=== PATIENT | male | born 1945 | race Two or more races ===

== ENCOUNTER 2023-01-08 16:42 | Inpatient (IN) | payer OTHER ==
[2023-01-08] MEDS: ALBUTEROL SO4 2.5/IPRATROPIUM 0.5 INH SOL 3 ML VIAL.NEB. NEB SCH ×3 (18:00→18:20)
[2023-01-08 18:15] LABS: VENOUS BASE EXCESS 0.9 mmol/L (-2-2); VENOUS O2 SATURATION 53.9 % (70-80); VENOUS PH 7.218 (7.310-7.410)
[2023-01-08] MEDS ORDERED: ERTAPENEM SODIUM 1 GM in SODIUM CHLORIDE 50 ML IVPB ONE (18:22)
[2023-01-08] MEDS ORDERED: VANCOMYCIN 1,000 MG in DEXTROSE 5%-WATER - 250 ML IVPB ONE (18:22)
[2023-01-08 18:23] LABS: BASO % 0.4 % (0-2.0); HEMOGLOBIN 10.4 GM/dL (11.7-16.9); MCH 30.1 pg (25.7-33.7); MCHC 31.7 g/dl (32.0-35.9); MEAN PLT VOLUME 6.7 fl (7.5-11.1); MONO % 3.9 % (3.8-10.2); NEUT % 91.7 % (42.8-82.8); PLATELET COUNT 335 10^3/uL (134-434); RBC 3.47 M/mm3 (4.00-5.60); RDW 16.3 % (11.9-15.9); WHITE BLOOD COUNT 24.4 K/mm3 (4.0-10.0)
[2023-01-08 18:26] LABS: VENOUS PCO2 76.5 mmHg (38-52)
[2023-01-08] MEDS ORDERED: VANCOMYCIN 1 GRAM (PRE-DOCKED) 1,000 MG/250 ML BAG IVPB ONE (18:28)
[2023-01-08 18:31] LABS: INR 1.12 (0.83-1.09)
[2023-01-08 18:34] LABS: ACTIVATED PTT 30.1 SECONDS (25.2-36.5)
[2023-01-08 18:46] LABS: POTASSIUM 5.4 mmol/L (3.5-5.1)
[2023-01-08 18:48] LABS: BLOOD UREA NITROGEN 53.9 mg/dL (7-18); CALCIUM 8.6 mg/dL (8.5-10.1)
[2023-01-08 18:49] LABS: ALBUMIN 2.1 g/dl (3.4-5.0)
[2023-01-08 18:51] LABS: CREATININE 0.9 mg/dL (0.55-1.3)
[2023-01-08 18:53] LABS: BILIRUBIN,TOTAL 0.5 mg/dL (0.2-1); TOT PROT 7.3 g/dl (6.4-8.2)
[2023-01-08 19:02] LABS: EPI CELLS 1 /uL (0-25.1); HYALINE CASTS 1 /uL (0-3.1); URINE APPEARANCE CLOUDY; URINE BACTERIA >9,000 /uL (0-1359); URINE BILIRUBIN NEGATIVE (NEGATIVE); URINE COLOR YELLOW; URINE GLUCOSE (UA) NEGATIVE (NEGATIVE); URINE KETONE NEGATIVE (NEGATIVE); URINE LEUK ESTERASE 3+ (NEGATIVE); URINE NITRITE NEGATIVE (NEGATIVE); URINE PROTEIN 1+ (NEGATIVE); URINE RBC 64 /uL (0-23.9); URINE WBC 679 /uL (0-25.8)
[2023-01-08] MEDS ORDERED: MEROPENEM 1 GM in DEXTROSE 5%-WATER 100 ML IVPB ONE (19:16)
[2023-01-08] MEDS ORDERED: MEROPENEM 1 GM VIAL (RESTRICTED TO ID) IVPB ONE (19:32)
[2023-01-09] MEDS ORDERED: SODIUM CHLORIDE 1,000 ML IV SCH (03:15)
[2023-01-09] MEDS ORDERED: DEXTROSE 50%-WATER - 25 GM/50 ML VIAL IVPUSH ONE ×2 (03:30→03:36)
[2023-01-09] MEDS ORDERED: DEXTROSE 50%-WATER 25 GM/50 ML DISP.SYRIN ONE ×3 (03:30→13:10)
[2023-01-09] MEDS ORDERED: MEROPENEM 1 GM VIAL (RESTRICTED TO ID) IVPB ONE ×2 (04:17→09:28)
[2023-01-09] MEDS: DEXTROSE 5%-NORMAL SALINE 1,000 ML IV SCH ×2 (04:32→14:37)
[2023-01-09] MEDS: MEROPENEM 1 GM in DEXTROSE 5%-WATER 100 ML IVPB SCH ×2 (04:32→10:09)
[2023-01-09] MEDS ORDERED: HEPARIN NA (PORCINE) 5,000 UNITS/ML 1ML VIAL ONE (06:13)
[2023-01-09] MEDS: HEPARIN NA (PORCINE) 5,000 UNITS/ML 1ML VIAL SQ SCH ×3 (06:21→21:10)
[2023-01-09] MEDS ORDERED: VANCOMYCIN 1 GRAM (PRE-DOCKED) 1,000 MG/250 ML BAG IVPB SCH (07:00)
[2023-01-09] MEDS ORDERED: INSULIN SLIDING SCALE (NOVOLOG) 1 VIAL SQ SCH (07:00)
[2023-01-09] MEDS ORDERED: DEXTROSE 50%-WATER - 25 GM/50 ML VIAL IVPUSH PRN (07:54)
[2023-01-09] MEDS ORDERED: VANCOMYCIN 1 GRAM (PRE-DOCKED) 1,000 MG/250 ML BAG IVPB ONE (08:19)
[2023-01-09 08:38] LABS: BASO % 0.2 % (0-2.0); HEMATOCRIT 26.5 % (35.4-49); HEMOGLOBIN 8.7 GM/dL (11.7-16.9); LYMPH % 5.8 % (8-40); MCH 31.5 pg (25.7-33.7); MEAN CELL VOLUME 95.4 fl (80-96); MEAN PLT VOLUME 6.8 fl (7.5-11.1); MONO % 4.4 % (3.8-10.2); NEUT % 89.6 % (42.8-82.8); PLATELET COUNT 293 10^3/uL (134-434); RBC 2.77 M/mm3 (4.00-5.60); RDW 15.6 % (11.9-15.9); RETICULOCYTES 1.58 % (0.5-1.5); WHITE BLOOD COUNT 13.5 K/mm3 (4.0-10.0)
[2023-01-09 08:55] LABS: POTASSIUM 5.3 mmol/L (3.5-5.1)
[2023-01-09 09:01] LABS: BLOOD UREA NITROGEN 54.7 mg/dL (7-18); CALCIUM 8.2 mg/dL (8.5-10.1)
[2023-01-09 09:02] LABS: ALBUMIN 1.8 g/dl (3.4-5.0); MAGNESIUM 2.7 mg/dL (1.8-2.4)
[2023-01-09 09:05] LABS: CREATININE 0.8 mg/dL (0.55-1.3); PHOSPHOROUS 4.6 mg/dL (2.5-4.9)
[2023-01-09 09:06] LABS: BILIRUBIN,TOTAL 0.5 mg/dL (0.2-1)
[2023-01-09 09:07] LABS: TOT PROT 6.2 g/dl (6.4-8.2)
[2023-01-09] MEDS ORDERED: DEXTROSE 50%-WATER 25 GM/50 ML DISP.SYRIN IVPUSH PRN (10:49)
[2023-01-09] MEDS: PIPERACILLIN/TAZOB 4.5 GM 4.5 GM in DEXTROSE 5%-WATER 100 ML IVPB SCH (17:10)
[2023-01-09] MEDS: VANCOMYCIN/WATER FOR INJ (PEG) 1,000 MG/200 ML BAG IVPB SCH (21:09)
[2023-01-09] MEDS ORDERED: SODIUM ZIRCONIUM CYCLOSILICATE (LOKELMA) 5 GM PACKET PO SCH (22:00)
[2023-01-10] MEDS: PIPERACILLIN/TAZOB 4.5 GM 4.5 GM in DEXTROSE 5%-WATER 100 ML IVPB SCH ×3 (01:15→17:06)
[2023-01-10] MEDS ORDERED: MEROPENEM 1 GM in DEXTROSE 5%-WATER 100 ML IVPB SCH (02:00)
[2023-01-10] MEDS: DEXTROSE 5%-NORMAL SALINE 1,000 ML IV SCH ×2 (04:00→17:09)
[2023-01-10] MEDS: HEPARIN NA (PORCINE) 5,000 UNITS/ML 1ML VIAL SQ SCH ×3 (06:11→21:28)
[2023-01-10 07:09] LABS: HEMATOCRIT 31.9 % (35.4-49); HEMOGLOBIN 10.5 GM/dL (11.7-16.9); PLATELET COUNT 303 10^3/uL (134-434); RBC 3.39 M/mm3 (4.00-5.60); RDW 16.2 % (11.9-15.9)
[2023-01-10 07:27] LABS: POTASSIUM 4.5 mmol/L (3.5-5.1)
[2023-01-10 07:33] LABS: BLOOD UREA NITROGEN 44.1 mg/dL (7-18)
[2023-01-10 07:34] LABS: ALBUMIN 1.8 g/dl (3.4-5.0)
[2023-01-10 07:37] LABS: CREATININE 0.7 mg/dL (0.55-1.3)
[2023-01-10 07:38] LABS: BILIRUBIN,TOTAL 0.7 mg/dL (0.2-1); TOT PROT 6.2 g/dl (6.4-8.2)
[2023-01-10] MEDS: VANCOMYCIN/WATER FOR INJ (PEG) 1,000 MG/200 ML BAG IVPB SCH ×2 (08:16→21:26)
[2023-01-10 08:40] LABS: ANISOCYTOSIS 1+; MACROCYTOSIS 0
[2023-01-10] MEDS ORDERED: LOSARTAN POTASSIUM 50 MG TABLET GT SCH (13:45)
[2023-01-10] MEDS ORDERED: LORazepam 2 MG/ML SDV VIAL IVPUSH STA (13:50)
[2023-01-10] MEDS ORDERED: dilTIAZem HCL 125 MG/25 ML - 25 ML VIAL ONE (13:57)
[2023-01-10] MEDS ORDERED: LORazepam 2 MG/ML SDV VIAL IVPUSH ONE (13:58)
[2023-01-10] MEDS ORDERED: levETIRAcetam 500 MG/5 ML INJECTION VIAL IVPB ONE (13:58)
[2023-01-10] MEDS ORDERED: dilTIAZem HCL 50 MG/10 ML - 10 ML VIAL IVPUSH ONE (13:59)
[2023-01-10] MEDS: levETIRAcetam 500 MG/5 ML ORAL SOLUTION (UNIT-DOSE CUPS) GT SCH ×2 (14:14→21:30)
[2023-01-10] MEDS: Lacosamide 50 MG/5 ML ORAL SOLUTION UNIT CUPS GT SCH ×2 (14:15→21:31)
[2023-01-10] MEDS: DIGOXIN 0.125 MG TABLET GT SCH (14:15)
[2023-01-10] MEDS: amLODIPine BESYLATE 10 MG TABLET (FP) GT SCH (14:15)
[2023-01-10] MEDS: OXcarbazepine 300 MG/5 ML UNIT DOSE CUPS GT SCH ×2 (15:49→21:30)
[2023-01-10] MEDS ORDERED: METOPROLOL TARTRATE 5 MG/5 ML VIAL IVPUSH PRN (16:24)
[2023-01-10 16:29] LABS: POTASSIUM 4.6 mmol/L (3.5-5.1)
[2023-01-10 16:31] LABS: BLOOD UREA NITROGEN 36.9 mg/dL (7-18); CALCIUM 8.4 mg/dL (8.5-10.1); MAGNESIUM 2.6 mg/dL (1.8-2.4)
[2023-01-10 16:33] LABS: CREATININE 0.7 mg/dL (0.55-1.3); PHOSPHOROUS 2.8 mg/dL (2.5-4.9)
[2023-01-10] MEDS: METOPROLOL TARTRATE 5 MG/5 ML VIAL IVPUSH ONE ×2 (16:45→17:16)
[2023-01-10] MEDS ORDERED: SODIUM CHLORIDE 1,000 ML IV STA (17:16)
[2023-01-10 19:00] LABS: N-TERMINAL BNP 3104.2 pg/ml (5-450)
[2023-01-10] MEDS: DOXAZOSIN MESYLATE 4 MG TABLET GT SCH (21:30)
[2023-01-10] MEDS ORDERED: FAMOTIDINE 40 MG/5 ML ORAL SUSPENSION GT SCH (22:00)
[2023-01-11] MEDS: PIPERACILLIN/TAZOB 4.5 GM 4.5 GM in DEXTROSE 5%-WATER 100 ML IVPB SCH ×3 (01:03→17:24)
[2023-01-11] MEDS: DEXTROSE 5%-NORMAL SALINE 1,000 ML IV SCH (02:00)
[2023-01-11] MEDS ORDERED: LACTATED RINGERS SOLUTION 1,000 ML/1,000 ML INFUS.BAG IV STA ×2 (05:42→11:01)
[2023-01-11] MEDS: OXcarbazepine 300 MG/5 ML UNIT DOSE CUPS GT SCH ×3 (06:03→22:07)
[2023-01-11] MEDS: HEPARIN NA (PORCINE) 5,000 UNITS/ML 1ML VIAL SQ SCH ×3 (06:03→22:04)
[2023-01-11] MEDS: LEVOTHYROXINE NA 100 MCG TABLET (FP) GT SCH (06:03)
[2023-01-11 06:55] LABS: BASO % 0.4 % (0-2.0); EOS % 0.1 % (0-4.5); HEMATOCRIT 23.6 % (35.4-49); HEMOGLOBIN 7.4 GM/dL (11.7-16.9); LYMPH % 6.9 % (8-40); MCH 30.6 pg (25.7-33.7); MCHC 31.6 g/dl (32.0-35.9); MEAN PLT VOLUME 6.8 fl (7.5-11.1); MONO % 6.3 % (3.8-10.2); NEUT % 86.3 % (42.8-82.8); PLATELET COUNT 282 10^3/uL (134-434); RBC 2.43 M/mm3 (4.00-5.60); RDW 16.1 % (11.9-15.9); WHITE BLOOD COUNT 11.6 K/mm3 (4.0-10.0)
[2023-01-11 07:19] LABS: POTASSIUM 3.9 mmol/L (3.5-5.1)
[2023-01-11 07:26] LABS: BLOOD UREA NITROGEN 35.5 mg/dL (7-18)
[2023-01-11 07:28] LABS: CREATININE 0.7 mg/dL (0.55-1.3); PHOSPHOROUS 1.9 mg/dL (2.5-4.9)
[2023-01-11 07:55] LABS: ALBUMIN 1.3 g/dl (3.4-5.0); CALCIUM 7.1 mg/dL (8.5-10.1); TOT PROT 4.9 g/dl (6.4-8.2)
[2023-01-11] MEDS: VANCOMYCIN/WATER FOR INJ (PEG) 1,000 MG/200 ML BAG IVPB SCH ×2 (08:34→22:03)
[2023-01-11] MEDS: AMINO ACIDS/PROTEIN HYDROLYS 30 ML LIQUID.PKT GT SCH (08:34)
[2023-01-11] MEDS: levETIRAcetam 500 MG/5 ML ORAL SOLUTION (UNIT-DOSE CUPS) GT SCH ×2 (09:01→22:06)
[2023-01-11] MEDS: DIGOXIN 0.125 MG TABLET GT SCH (09:02)
[2023-01-11] MEDS: FAMOTIDINE 20 MG/2.5 ML ORAL LIQUID GT SCH ×2 (09:02→22:06)
[2023-01-11] MEDS: ASCORBIC ACID 500 MG/5 ML UNIT DOSE CUP GT SCH (09:03)
[2023-01-11] MEDS: Lacosamide 50 MG/5 ML ORAL SOLUTION UNIT CUPS GT SCH ×2 (09:26→22:07)
[2023-01-11] MEDS: LOSARTAN POTASSIUM 50 MG TABLET GT SCH (09:26)
[2023-01-11] MEDS ORDERED: NOREPINEPHRINE BITARTRATE 16,000 MCG in SODIUM CHLORIDE 484 ML IV SCH (14:00)
[2023-01-11] MEDS: NOREPINEPHRINE 0.9 % NACL 8 MG/250 ML BAG IVPB SCH (14:21)
[2023-01-11] MEDS ORDERED: PROPOFOL 1,000,000 MCG/100 ML VIAL ONE (14:28)
[2023-01-11] MEDS: MUPIROCIN 2% TOPICAL OINTMENT FOR DECOLONIZATION NS SCH ×2 (15:53→22:23)
[2023-01-11 21:21] LABS: HEMATOCRIT 30.6 % (35.4-49); HEMOGLOBIN 10.2 GM/dL (11.7-16.9); MCH 31.1 pg (25.7-33.7); MCHC 33.2 g/dl (32.0-35.9); MEAN CELL VOLUME 93.7 fl (80-96); MEAN PLT VOLUME 6.2 fl (7.5-11.1); PLATELET COUNT 340 10^3/uL (134-434); RBC 3.26 M/mm3 (4.00-5.60); RDW 15.6 % (11.9-15.9)
[2023-01-11] MEDS: DOXAZOSIN MESYLATE 4 MG TABLET GT SCH (22:04)
[2023-01-11] MEDS: CHLORHEXIDINE GLUCONATE 4% CLEANSER FOR DECOLONIZATION TP SCH (22:05)
[2023-01-11 22:12] LABS: ANISOCYTOSIS 1+; MACROCYTOSIS 1+
[2023-01-12] MEDS: PIPERACILLIN/TAZOB 4.5 GM 4.5 GM in DEXTROSE 5%-WATER 100 ML IVPB SCH ×3 (01:23→18:15)
[2023-01-12] MEDS: DEXTROSE 5%-NORMAL SALINE 1,000 ML IV SCH (06:17)
[2023-01-12] MEDS: HEPARIN NA (PORCINE) 5,000 UNITS/ML 1ML VIAL SQ SCH ×3 (06:17→22:02)
[2023-01-12] MEDS: OXcarbazepine 300 MG/5 ML UNIT DOSE CUPS GT SCH ×3 (06:21→22:04)
[2023-01-12] MEDS: LEVOTHYROXINE NA 100 MCG TABLET (FP) GT SCH (06:21)
[2023-01-12 09:52] LABS: HEMATOCRIT 27.1 % (35.4-49); HEMOGLOBIN 9.1 GM/dL (11.7-16.9); MCH 31.7 pg (25.7-33.7); MCHC 33.7 g/dl (32.0-35.9); MEAN PLT VOLUME 6.2 fl (7.5-11.1); PLATELET COUNT 267 10^3/uL (134-434); RBC 2.88 M/mm3 (4.00-5.60); WHITE BLOOD COUNT 9.1 K/mm3 (4.0-10.0)
[2023-01-12] MEDS: VANCOMYCIN/WATER FOR INJ (PEG) 1,000 MG/200 ML BAG IVPB SCH ×2 (10:03→10:06)
[2023-01-12] MEDS: ASCORBIC ACID 500 MG/5 ML UNIT DOSE CUP GT SCH (10:04)
[2023-01-12] MEDS: AMINO ACIDS/PROTEIN HYDROLYS 30 ML LIQUID.PKT GT SCH (10:04)
[2023-01-12] MEDS: FAMOTIDINE 20 MG/2.5 ML ORAL LIQUID GT SCH ×2 (10:04→22:04)
[2023-01-12] MEDS: Lacosamide 50 MG/5 ML ORAL SOLUTION UNIT CUPS GT SCH ×2 (10:04→22:07)
[2023-01-12] MEDS: DIGOXIN 0.125 MG TABLET GT SCH (10:05)
[2023-01-12 10:09] LABS: POTASSIUM 3.2 mmol/L (3.5-5.1)
[2023-01-12 10:11] LABS: CALCIUM 7.3 mg/dL (8.5-10.1)
[2023-01-12 10:12] LABS: ALBUMIN 1.3 g/dl (3.4-5.0); BLOOD UREA NITROGEN 29.2 mg/dL (7-18); MAGNESIUM 2.1 mg/dL (1.8-2.4)
[2023-01-12] MEDS: levETIRAcetam 500 MG/5 ML ORAL SOLUTION (UNIT-DOSE CUPS) GT SCH ×2 (10:12→22:03)
[2023-01-12] MEDS: MUPIROCIN 2% TOPICAL OINTMENT FOR DECOLONIZATION NS SCH ×2 (10:12→21:15)
[2023-01-12 10:15] LABS: CREATININE 0.7 mg/dL (0.55-1.3)
[2023-01-12 10:16] LABS: BILIRUBIN,TOTAL 0.6 mg/dL (0.2-1)
[2023-01-12 11:00] LABS: ANISOCYTOSIS 0; MACROCYTOSIS 0
[2023-01-12] MEDS: amLODIPine BESYLATE 10 MG TABLET (FP) GT SCH (13:42)
[2023-01-12] MEDS: LOSARTAN POTASSIUM 50 MG TABLET GT SCH (13:42)
[2023-01-12] MEDS ORDERED: POTASSIUM CHLORIDE ORAL LIQUID 20 MEQ/15 ML PO ONE (14:59)
[2023-01-12 16:13] VITALS: BMI 22.4
[2023-01-12] MEDS: NOREPINEPHRINE 0.9 % NACL 8 MG/250 ML BAG IVPB SCH (22:00)
[2023-01-12] MEDS: CHLORHEXIDINE GLUCONATE 4% CLEANSER FOR DECOLONIZATION TP SCH (22:02)
[2023-01-12] MEDS: DOXAZOSIN MESYLATE 4 MG TABLET GT SCH (22:02)
[2023-01-13] MEDS: PIPERACILLIN/TAZOB 4.5 GM 4.5 GM in DEXTROSE 5%-WATER 100 ML IVPB SCH ×3 (02:58→18:01)
[2023-01-13] MEDS: HEPARIN NA (PORCINE) 5,000 UNITS/ML 1ML VIAL SQ SCH ×3 (06:01→22:45)
[2023-01-13] MEDS: OXcarbazepine 300 MG/5 ML UNIT DOSE CUPS GT SCH ×3 (06:04→22:46)
[2023-01-13] MEDS: LEVOTHYROXINE NA 100 MCG TABLET (FP) GT SCH (06:05)
[2023-01-13 08:01] LABS: POTASSIUM 3.8 mmol/L (3.5-5.1)
[2023-01-13 08:08] LABS: CALCIUM 7.6 mg/dL (8.5-10.1)
[2023-01-13 08:09] LABS: ALBUMIN 1.4 g/dl (3.4-5.0); BLOOD UREA NITROGEN 22.2 mg/dL (7-18); MAGNESIUM 2.2 mg/dL (1.8-2.4)
[2023-01-13 08:12] LABS: CREATININE 0.6 mg/dL (0.55-1.3); PHOSPHOROUS 1.6 mg/dL (2.5-4.9)
[2023-01-13 08:13] LABS: BILIRUBIN,TOTAL 0.6 mg/dL (0.2-1)
[2023-01-13 08:14] LABS: TOT PROT 5.6 g/dl (6.4-8.2)
[2023-01-13 08:17] LABS: HEMATOCRIT 30.4 % (35.4-49); MCH 31.4 pg (25.7-33.7); MCHC 32.9 g/dl (32.0-35.9); MEAN CELL VOLUME 95.5 fl (80-96); MEAN PLT VOLUME 6.6 fl (7.5-11.1); PLATELET COUNT 304 10^3/uL (134-434); RBC 3.18 M/mm3 (4.00-5.60); RDW 15.7 % (11.9-15.9)
[2023-01-13 08:52] LABS: ANISOCYTOSIS 1+; MACROCYTOSIS 0
[2023-01-13] MEDS: AMINO ACIDS/PROTEIN HYDROLYS 30 ML LIQUID.PKT GT SCH (09:29)
[2023-01-13] MEDS: levETIRAcetam 500 MG/5 ML ORAL SOLUTION (UNIT-DOSE CUPS) GT SCH ×2 (09:29→22:44)
[2023-01-13] MEDS: FAMOTIDINE 20 MG/2.5 ML ORAL LIQUID GT SCH ×2 (09:30→22:43)
[2023-01-13] MEDS: DIGOXIN 0.125 MG TABLET GT SCH (09:30)
[2023-01-13] MEDS: MUPIROCIN 2% TOPICAL OINTMENT FOR DECOLONIZATION NS SCH (09:30)
[2023-01-13] MEDS: LOSARTAN POTASSIUM 50 MG TABLET GT SCH (09:30)
[2023-01-13] MEDS: Lacosamide 50 MG/5 ML ORAL SOLUTION UNIT CUPS GT SCH ×2 (09:30→22:49)
[2023-01-13] MEDS: ASCORBIC ACID 500 MG/5 ML UNIT DOSE CUP GT SCH (09:31)
[2023-01-13] MEDS: amLODIPine BESYLATE 10 MG TABLET (FP) GT SCH (09:31)
[2023-01-13] MEDS ORDERED: NOREPINEPHRINE 0.9 % NACL 8 MG/250 ML BAG IVPB SCH (13:27)
[2023-01-13] MEDS ORDERED: DEXTROSE 50%-WATER 25 GM/50 ML DISP.SYRIN IVPUSH PRN (13:27)
[2023-01-13] MEDS: methylPREDNISolone NA SUCC 40 MG/1 ML VIAL IVPUSH SCH (14:13)
[2023-01-13] MEDS: NAPH,MB-DB/K PH,MBDB POWDER PACKET PO SCH ×2 (14:14→22:43)
[2023-01-13] MEDS ORDERED: MUPIROCIN 2% TOPICAL OINTMENT FOR DECOLONIZATION NS SCH (22:00)
[2023-01-13] MEDS ORDERED: CHLORHEXIDINE GLUCONATE 4% CLEANSER FOR DECOLONIZATION TP SCH (22:00)
[2023-01-13] MEDS: DOXAZOSIN MESYLATE 4 MG TABLET GT SCH (22:59)
[2023-01-14] MEDS: PIPERACILLIN/TAZOB 4.5 GM 4.5 GM in DEXTROSE 5%-WATER 100 ML IVPB SCH ×3 (02:35→17:53)
[2023-01-14] MEDS: NAPH,MB-DB/K PH,MBDB POWDER PACKET PO SCH (05:52)
[2023-01-14] MEDS: HEPARIN NA (PORCINE) 5,000 UNITS/ML 1ML VIAL SQ SCH ×3 (05:52→22:56)
[2023-01-14] MEDS: OXcarbazepine 300 MG/5 ML UNIT DOSE CUPS GT SCH ×3 (05:52→22:56)
[2023-01-14] MEDS: LEVOTHYROXINE NA 100 MCG TABLET (FP) GT SCH (06:00)
[2023-01-14] MEDS: amLODIPine BESYLATE 10 MG TABLET (FP) GT SCH (11:57)
[2023-01-14] MEDS: DIGOXIN 0.125 MG TABLET GT SCH (11:57)
[2023-01-14] MEDS: AMINO ACIDS/PROTEIN HYDROLYS 30 ML LIQUID.PKT GT SCH (11:57)
[2023-01-14] MEDS: ASCORBIC ACID 500 MG/5 ML UNIT DOSE CUP GT SCH (11:58)
[2023-01-14] MEDS: LOSARTAN POTASSIUM 50 MG TABLET GT SCH (11:58)
[2023-01-14] MEDS: Lacosamide 50 MG/5 ML ORAL SOLUTION UNIT CUPS GT SCH ×2 (11:59→22:52)
[2023-01-14] MEDS: levETIRAcetam 500 MG/5 ML ORAL SOLUTION (UNIT-DOSE CUPS) GT SCH ×2 (11:59→22:52)
[2023-01-14] MEDS: FAMOTIDINE 20 MG/2.5 ML ORAL LIQUID GT SCH ×2 (12:02→22:57)
[2023-01-14] MEDS: methylPREDNISolone NA SUCC 40 MG/1 ML VIAL IVPUSH SCH (12:03)
[2023-01-14] MEDS: DOXAZOSIN MESYLATE 4 MG TABLET GT SCH (22:58)
[2023-01-15] MEDS: PIPERACILLIN/TAZOB 4.5 GM 4.5 GM in DEXTROSE 5%-WATER 100 ML IVPB SCH ×3 (01:28→17:23)
[2023-01-15] MEDS: LEVOTHYROXINE NA 100 MCG TABLET (FP) GT SCH (07:04)
[2023-01-15] MEDS: OXcarbazepine 300 MG/5 ML UNIT DOSE CUPS GT SCH ×3 (07:04→22:17)
[2023-01-15] MEDS: HEPARIN NA (PORCINE) 5,000 UNITS/ML 1ML VIAL SQ SCH ×3 (07:04→22:19)
[2023-01-15 09:03] LABS: HEMATOCRIT 25.1 % (35.4-49); HEMOGLOBIN 8.4 GM/dL (11.7-16.9); MCH 31.3 pg (25.7-33.7); MCHC 33.4 g/dl (32.0-35.9); MEAN CELL VOLUME 93.6 fl (80-96); MEAN PLT VOLUME 6.4 fl (7.5-11.1); PLATELET COUNT 233 10^3/uL (134-434); RBC 2.69 M/mm3 (4.00-5.60); RDW 15.9 % (11.9-15.9); WHITE BLOOD COUNT 7.9 K/mm3 (4.0-10.0)
[2023-01-15 09:09] LABS: POTASSIUM 4.4 mmol/L (3.5-5.1)
[2023-01-15 09:13] LABS: ALBUMIN 1.3 g/dl (3.4-5.0); CALCIUM 7.5 mg/dL (8.5-10.1); MAGNESIUM 2.1 mg/dL (1.8-2.4)
[2023-01-15 09:14] LABS: BLOOD UREA NITROGEN 28.1 mg/dL (7-18)
[2023-01-15 09:16] LABS: CREATININE 0.6 mg/dL (0.55-1.3); PHOSPHOROUS 1.9 mg/dL (2.5-4.9)
[2023-01-15 09:18] LABS: BILIRUBIN,TOTAL 0.6 mg/dL (0.2-1); TOT PROT 5.1 g/dl (6.4-8.2)
[2023-01-15 09:35] LABS: ANISOCYTOSIS 1+; MACROCYTOSIS 0
[2023-01-15] MEDS ORDERED: NAPH,MB-DB/K PH,MBDB POWDER PACKET PO ONE (10:45)
[2023-01-15] MEDS: methylPREDNISolone NA SUCC 40 MG/1 ML VIAL IVPUSH SCH (11:54)
[2023-01-15] MEDS: ASCORBIC ACID 500 MG/5 ML UNIT DOSE CUP GT SCH (11:54)
[2023-01-15] MEDS: DIGOXIN 0.125 MG TABLET GT SCH (11:55)
[2023-01-15] MEDS: amLODIPine BESYLATE 10 MG TABLET (FP) GT SCH (11:55)
[2023-01-15] MEDS: levETIRAcetam 500 MG/5 ML ORAL SOLUTION (UNIT-DOSE CUPS) GT SCH ×2 (11:56→22:15)
[2023-01-15] MEDS: LOSARTAN POTASSIUM 50 MG TABLET GT SCH (11:56)
[2023-01-15] MEDS: AMINO ACIDS/PROTEIN HYDROLYS 30 ML LIQUID.PKT GT SCH (11:56)
[2023-01-15] MEDS: Lacosamide 50 MG/5 ML ORAL SOLUTION UNIT CUPS GT SCH ×2 (11:58→22:16)
[2023-01-15] MEDS: FAMOTIDINE 20 MG/2.5 ML ORAL LIQUID GT SCH ×2 (12:23→22:17)
[2023-01-15] MEDS: DOXAZOSIN MESYLATE 4 MG TABLET GT SCH (22:18)
[2023-01-16] MEDS: PIPERACILLIN/TAZOB 4.5 GM 4.5 GM in DEXTROSE 5%-WATER 100 ML IVPB SCH ×3 (02:58→17:29)
[2023-01-16] MEDS: HEPARIN NA (PORCINE) 5,000 UNITS/ML 1ML VIAL SQ SCH ×3 (06:03→22:18)
[2023-01-16] MEDS: LEVOTHYROXINE NA 100 MCG TABLET (FP) GT SCH (08:15)
[2023-01-16] MEDS: AMINO ACIDS/PROTEIN HYDROLYS 30 ML LIQUID.PKT GT SCH (08:15)
[2023-01-16 09:10] LABS: HEMATOCRIT 31.2 % (35.4-49); HEMOGLOBIN 10.3 GM/dL (11.7-16.9); MCH 31.5 pg (25.7-33.7); MEAN CELL VOLUME 95.4 fl (80-96); MEAN PLT VOLUME 6.7 fl (7.5-11.1); PLATELET COUNT 283 10^3/uL (134-434); RBC 3.27 M/mm3 (4.00-5.60); RDW 16.1 % (11.9-15.9); WHITE BLOOD COUNT 12.3 K/mm3 (4.0-10.0)
[2023-01-16 09:30] LABS: POTASSIUM 4.9 mmol/L (3.5-5.1)
[2023-01-16 09:33] LABS: MAGNESIUM 2.2 mg/dL (1.8-2.4)
[2023-01-16 09:34] LABS: BLOOD UREA NITROGEN 30.3 mg/dL (7-18)
[2023-01-16 09:36] LABS: CREATININE 0.6 mg/dL (0.55-1.3); PHOSPHOROUS 2.4 mg/dL (2.5-4.9)
[2023-01-16 09:38] LABS: BILIRUBIN,TOTAL 0.4 mg/dL (0.2-1); TOT PROT 6.4 g/dl (6.4-8.2)
[2023-01-16 09:39] LABS: ALBUMIN 1.7 g/dl (3.4-5.0)
[2023-01-16] MEDS: Lacosamide 50 MG/5 ML ORAL SOLUTION UNIT CUPS GT SCH ×2 (10:09→22:17)
[2023-01-16] MEDS: levETIRAcetam 500 MG/5 ML ORAL SOLUTION (UNIT-DOSE CUPS) GT SCH ×2 (10:09→22:17)
[2023-01-16] MEDS: DIGOXIN 0.125 MG TABLET GT SCH (10:10)
[2023-01-16] MEDS: ASCORBIC ACID 500 MG/5 ML UNIT DOSE CUP GT SCH (10:10)
[2023-01-16] MEDS: methylPREDNISolone NA SUCC 40 MG/1 ML VIAL IVPUSH SCH (10:10)
[2023-01-16] MEDS: LOSARTAN POTASSIUM 50 MG TABLET GT SCH (10:10)
[2023-01-16] MEDS: FAMOTIDINE 20 MG/2.5 ML ORAL LIQUID GT SCH ×2 (10:10→22:38)
[2023-01-16] MEDS: amLODIPine BESYLATE 10 MG TABLET (FP) GT SCH (10:10)
[2023-01-16] MEDS: OXcarbazepine 300 MG/5 ML UNIT DOSE CUPS GT SCH ×3 (11:29→22:17)
[2023-01-16] MEDS: DOXAZOSIN MESYLATE 4 MG TABLET GT SCH (22:18)
[2023-01-17] MEDS: PIPERACILLIN/TAZOB 4.5 GM 4.5 GM in DEXTROSE 5%-WATER 100 ML IVPB SCH ×2 (01:42→10:20)
[2023-01-17] MEDS: HEPARIN NA (PORCINE) 5,000 UNITS/ML 1ML VIAL SQ SCH ×3 (06:03→21:01)
[2023-01-17] MEDS: OXcarbazepine 300 MG/5 ML UNIT DOSE CUPS GT SCH ×3 (06:03→21:01)
[2023-01-17] MEDS: LEVOTHYROXINE NA 100 MCG TABLET (FP) GT SCH (06:04)
[2023-01-17] MEDS: methylPREDNISolone NA SUCC 40 MG/1 ML VIAL IVPUSH SCH (10:21)
[2023-01-17] MEDS: DIGOXIN 0.125 MG TABLET GT SCH (10:21)
[2023-01-17] MEDS: LOSARTAN POTASSIUM 50 MG TABLET GT SCH (10:21)
[2023-01-17] MEDS: AMINO ACIDS/PROTEIN HYDROLYS 30 ML LIQUID.PKT GT SCH (10:21)
[2023-01-17] MEDS: amLODIPine BESYLATE 10 MG TABLET (FP) GT SCH (10:21)
[2023-01-17] MEDS: FAMOTIDINE 20 MG/2.5 ML ORAL LIQUID GT SCH ×2 (10:22→21:01)
[2023-01-17] MEDS: Lacosamide 50 MG/5 ML ORAL SOLUTION UNIT CUPS GT SCH ×2 (10:22→21:01)
[2023-01-17] MEDS: levETIRAcetam 500 MG/5 ML ORAL SOLUTION (UNIT-DOSE CUPS) GT SCH ×2 (10:22→21:01)
[2023-01-17] MEDS: ASCORBIC ACID 500 MG/5 ML UNIT DOSE CUP GT SCH (10:22)
[2023-01-17] MEDS: DOXAZOSIN MESYLATE 4 MG TABLET GT SCH (21:01)
[2023-01-18] MEDS: HEPARIN NA (PORCINE) 5,000 UNITS/ML 1ML VIAL SQ SCH ×3 (05:27→23:20)
[2023-01-18] MEDS: OXcarbazepine 300 MG/5 ML UNIT DOSE CUPS GT SCH ×3 (05:30→23:23)
[2023-01-18] MEDS: LEVOTHYROXINE NA 100 MCG TABLET (FP) GT SCH (06:02)
[2023-01-18] MEDS: AMINO ACIDS/PROTEIN HYDROLYS 30 ML LIQUID.PKT GT SCH (08:33)
[2023-01-18 09:11] LABS: HEMATOCRIT 29.3 % (35.4-49); HEMOGLOBIN 9.7 GM/dL (11.7-16.9); MCH 31.2 pg (25.7-33.7); MCHC 33.1 g/dl (32.0-35.9); MEAN CELL VOLUME 94.3 fl (80-96); MEAN PLT VOLUME 7.1 fl (7.5-11.1); PLATELET COUNT 271 10^3/uL (134-434); RBC 3.11 M/mm3 (4.00-5.60); RDW 15.9 % (11.9-15.9); WHITE BLOOD COUNT 11.3 K/mm3 (4.0-10.0)
[2023-01-18 09:30] LABS: POTASSIUM 5.2 mmol/L (3.5-5.1)
[2023-01-18 09:48] LABS: BILIRUBIN,TOTAL 0.4 mg/dL (0.2-1); CALCIUM 7.7 mg/dL (8.5-10.1); TOT PROT 5.5 g/dl (6.4-8.2)
[2023-01-18 09:51] LABS: ALBUMIN 1.6 g/dl (3.4-5.0); BLOOD UREA NITROGEN 31.8 mg/dL (7-18)
[2023-01-18 09:54] LABS: ANISOCYTOSIS 2+; MACROCYTOSIS 0; TARGET CELLS 1+
[2023-01-18 09:55] LABS: CREATININE 0.5 mg/dL (0.55-1.3)
[2023-01-18] MEDS: ASCORBIC ACID 500 MG/5 ML UNIT DOSE CUP GT SCH (10:05)
[2023-01-18] MEDS: Lacosamide 50 MG/5 ML ORAL SOLUTION UNIT CUPS GT SCH (10:05)
[2023-01-18] MEDS: methylPREDNISolone NA SUCC 40 MG/1 ML VIAL IVPUSH SCH (10:05)
[2023-01-18] MEDS: levETIRAcetam 500 MG/5 ML ORAL SOLUTION (UNIT-DOSE CUPS) GT SCH ×2 (10:05→23:22)
[2023-01-18] MEDS: amLODIPine BESYLATE 10 MG TABLET (FP) GT SCH (10:05)
[2023-01-18] MEDS: FAMOTIDINE 20 MG/2.5 ML ORAL LIQUID GT SCH ×2 (10:06→23:24)
[2023-01-18] MEDS: DIGOXIN 0.125 MG TABLET GT SCH (10:06)
[2023-01-18] MEDS: LOSARTAN POTASSIUM 50 MG TABLET GT SCH (10:06)
[2023-01-18] MEDS: SODIUM ZIRCONIUM CYCLOSILICATE (LOKELMA) 5 GM PACKET PO SCH (14:24)
[2023-01-18] MEDS: DOXAZOSIN MESYLATE 4 MG TABLET GT SCH (23:25)
[2023-01-19] MEDS: Lacosamide 50 MG/5 ML ORAL SOLUTION UNIT CUPS GT SCH ×3 (00:30→21:50)
[2023-01-19] MEDS: DOXAZOSIN MESYLATE 4 MG TABLET GT SCH ×2 (06:36→21:52)
[2023-01-19] MEDS: levETIRAcetam 500 MG/5 ML ORAL SOLUTION (UNIT-DOSE CUPS) GT SCH ×3 (06:39→21:50)
[2023-01-19] MEDS: FAMOTIDINE 20 MG/2.5 ML ORAL LIQUID GT SCH ×3 (06:40→21:51)
[2023-01-19] MEDS: OXcarbazepine 300 MG/5 ML UNIT DOSE CUPS GT SCH ×4 (06:41→21:51)
[2023-01-19] MEDS: HEPARIN NA (PORCINE) 5,000 UNITS/ML 1ML VIAL SQ SCH ×4 (06:43→21:49)
[2023-01-19] MEDS: LEVOTHYROXINE NA 100 MCG TABLET (FP) GT SCH (07:15)
[2023-01-19] MEDS: SODIUM ZIRCONIUM CYCLOSILICATE (LOKELMA) 5 GM PACKET PO SCH (09:45)
[2023-01-19] MEDS: AMINO ACIDS/PROTEIN HYDROLYS 30 ML LIQUID.PKT GT SCH (09:45)
[2023-01-19] MEDS: LOSARTAN POTASSIUM 25 MG TABLET GT SCH (09:46)
[2023-01-19] MEDS: DIGOXIN 0.125 MG TABLET GT SCH (09:48)
[2023-01-19] MEDS: amLODIPine BESYLATE 10 MG TABLET (FP) GT SCH (09:48)
[2023-01-19] MEDS: methylPREDNISolone NA SUCC 40 MG/1 ML VIAL IVPUSH SCH (09:49)
[2023-01-19] MEDS: ASCORBIC ACID 500 MG/5 ML UNIT DOSE CUP GT SCH (09:49)
[2023-01-19] MEDS ORDERED: methylPREDNISolone NA SUCC 40 MG/1 ML VIAL IVPUSH SCH (10:12)
[2023-01-20] MEDS: OXcarbazepine 300 MG/5 ML UNIT DOSE CUPS GT SCH ×3 (05:24→21:57)
[2023-01-20] MEDS: HEPARIN NA (PORCINE) 5,000 UNITS/ML 1ML VIAL SQ SCH ×3 (05:25→21:57)
[2023-01-20] MEDS: LEVOTHYROXINE NA 100 MCG TABLET (FP) GT SCH (06:03)
[2023-01-20] MEDS: AMINO ACIDS/PROTEIN HYDROLYS 30 ML LIQUID.PKT GT SCH (08:32)
[2023-01-20 09:58] LABS: HEMOGLOBIN 9.8 GM/dL (11.7-16.9); MCH 31.1 pg (25.7-33.7); MCHC 32.8 g/dl (32.0-35.9); MEAN CELL VOLUME 95.1 fl (80-96); MEAN PLT VOLUME 7.5 fl (7.5-11.1); PLATELET COUNT 302 10^3/uL (134-434); RBC 3.15 M/mm3 (4.00-5.60); RDW 17.1 % (11.9-15.9); WHITE BLOOD COUNT 11.6 K/mm3 (4.0-10.0)
[2023-01-20 10:06] LABS: POTASSIUM 4.7 mmol/L (3.5-5.1)
[2023-01-20] MEDS ORDERED: predniSONE 10 MG TABLET (UD) PO SCH (10:15)
[2023-01-20] MEDS ORDERED: predniSONE 10 MG TABLET (UD) GT SCH (10:15)
[2023-01-20 10:17] LABS: CREATININE 0.6 mg/dL (0.55-1.3)
[2023-01-20 10:18] LABS: ALBUMIN 1.7 g/dl (3.4-5.0); TOT PROT 5.6 g/dl (6.4-8.2)
[2023-01-20 10:19] LABS: BILIRUBIN,TOTAL 0.3 mg/dL (0.2-1)
[2023-01-20 10:20] LABS: CALCIUM 7.7 mg/dL (8.5-10.1)
[2023-01-20] MEDS: ASCORBIC ACID 500 MG/5 ML UNIT DOSE CUP GT SCH (10:57)
[2023-01-20] MEDS: DIGOXIN 0.125 MG TABLET GT SCH (10:57)
[2023-01-20] MEDS: amLODIPine BESYLATE 10 MG TABLET (FP) GT SCH (10:57)
[2023-01-20] MEDS: FAMOTIDINE 20 MG/2.5 ML ORAL LIQUID GT SCH ×2 (10:57→21:59)
[2023-01-20] MEDS: LOSARTAN POTASSIUM 25 MG TABLET GT SCH (10:57)
[2023-01-20 11:06] LABS: ANISOCYTOSIS 0; HELMET CELLS 0; HOWELL-JOLLY BODIES 0; MACROCYTOSIS 0; OVALOCYTE 0; ROULEAU 0; SICKELED CELLS 0; TARGET CELLS 0; TEAR DROP CELLS 0; TOXIC GRANULATION 0
[2023-01-20] MEDS: levETIRAcetam 500 MG/5 ML ORAL SOLUTION (UNIT-DOSE CUPS) GT SCH ×2 (11:28→21:58)
[2023-01-20] MEDS: Lacosamide 50 MG/5 ML ORAL SOLUTION UNIT CUPS GT SCH ×2 (11:28→21:58)
[2023-01-20] MEDS: DOXAZOSIN MESYLATE 4 MG TABLET GT SCH (22:54)
[2023-01-21] MEDS: HEPARIN NA (PORCINE) 5,000 UNITS/ML 1ML VIAL SQ SCH ×2 (05:50→13:52)
[2023-01-21] MEDS: OXcarbazepine 300 MG/5 ML UNIT DOSE CUPS GT SCH ×2 (05:50→13:53)
[2023-01-21] MEDS: LEVOTHYROXINE NA 100 MCG TABLET (FP) GT SCH (06:04)
[2023-01-21] MEDS: ASCORBIC ACID 500 MG/5 ML UNIT DOSE CUP GT SCH (10:43)
[2023-01-21] MEDS: Lacosamide 50 MG/5 ML ORAL SOLUTION UNIT CUPS GT SCH (10:43)
[2023-01-21] MEDS: amLODIPine BESYLATE 10 MG TABLET (FP) GT SCH (10:43)
[2023-01-21] MEDS: levETIRAcetam 500 MG/5 ML ORAL SOLUTION (UNIT-DOSE CUPS) GT SCH (10:43)
[2023-01-21] MEDS: LOSARTAN POTASSIUM 25 MG TABLET GT SCH (10:43)
[2023-01-21] MEDS: FAMOTIDINE 20 MG/2.5 ML ORAL LIQUID GT SCH (10:44)
[2023-01-21] MEDS: AMINO ACIDS/PROTEIN HYDROLYS 30 ML LIQUID.PKT GT SCH (10:44)
[2023-01-21] MEDS: DIGOXIN 0.125 MG TABLET GT SCH (10:46)
[2023-01-21 14:53] VITALS: BP 140/63; PULSE 81; TEMP 97.7
[2023-01-21 17:45] VITALS: RESP 17
== END 2023-01-21 17:48 | DRG 870 ==
LOC: JER 16:42 → JERBED 20:48 → J2W 01-09 14:11 → JICU 01-11 14:11 → J5S 01-13 12:56
PROVIDERS: ADMIT Internal Medicine; ATTEND Internal Medicine
PROC: 5A1955Z Respiratory Ventilation, Greater than 96 Consecutive Hours (ICD-10-PCS; principal; 2023-01-08)
PROC: 05HN33Z Insertion of Infusion Device into Left Internal Jugular Vein, Percutaneous Approach (ICD-10-PCS; 2023-01-11)
PROC: B544ZZA Ultrasonography of Left Jugular Veins, Guidance (ICD-10-PCS; 2023-01-11)
PROC: 30233N1 Transfusion of Nonautologous Red Blood Cells into Peripheral Vein, Percutaneous Approach (ICD-10-PCS; 2023-01-11)
DX: A41.9 Sepsis, unspecified organism (principal); G82.50 Quadriplegia, unspecified; J18.9 Pneumonia, unspecified organism; R65.21 Severe sepsis with septic shock; E43 Unspecified severe protein-calorie malnutrition; G93.1 Anoxic brain damage, not elsewhere classified; J96.10 Chronic respiratory failure, unspecified whether with hypoxia or hypercapnia; N39.0 Urinary tract infection, site not specified; E87.1 Hypo-osmolality and hyponatremia; Z99.11 Dependence on respirator [ventilator] status; Z93.0 Tracheostomy status; G40.909 Epilepsy, unspecified, not intractable, without status epilepticus; I48.91 Unspecified atrial fibrillation; E78.5 Hyperlipidemia, unspecified; I11.0 Hypertensive heart disease with heart failure; I50.9 Heart failure, unspecified; J45.909 Unspecified asthma, uncomplicated; E03.9 Hypothyroidism, unspecified; K21.9 Gastro-esophageal reflux disease without esophagitis; N40.0 Benign prostatic hyperplasia without lower urinary tract symptoms; E87.5 Hyperkalemia; D64.9 Anemia, unspecified; Z68.24 Body mass index [BMI] 24.0-24.9, adult; E11.649 Type 2 diabetes mellitus with hypoglycemia without coma
CPT/HCPCS: 0241U-QW; 36415; 36430; 70450-TC; 71045-TC-FY; 76700-TC; 80053; 80162; 80177; 80183; 81003; 82024; 82533; 82550; 82553; 82803; 82962; 83036; 83525; 83540; 83550; 83605; 83735; 83880; 84100; 84439; 84443; 84484; 85025; 85027; 85045; 85610; 85730; 86704; 86803; 86850; 86900; 86901; 86922; 87040; 87081; 87086; 87186; 87340; 87517; 87635; 93005; 93010; 93970-TC; 94002; 99285-25; G0480; J1644; P9058

== ENCOUNTER 2023-01-21 19:39 | Observation (INO) | payer OTHER ==
[2023-01-21 20:01] VITALS: BMI 28.1
[2023-01-21] MEDS ORDERED: HEPARIN NA (PORCINE) 5,000 UNITS/ML 1ML VIAL SQ SCH (22:00)
[2023-01-21] MEDS ORDERED: DOXAZOSIN MESYLATE 4 MG TABLET GT SCH (22:00)
[2023-01-21] MEDS: levETIRAcetam 500 MG/5 ML ORAL SOLUTION (UNIT-DOSE CUPS) GT SCH (23:11)
[2023-01-21] MEDS: Lacosamide 50 MG/5 ML ORAL SOLUTION UNIT CUPS GT SCH (23:12)
[2023-01-21] MEDS: OXcarbazepine 300 MG/5 ML UNIT DOSE CUPS GT SCH (23:13)
[2023-01-22] MEDS ORDERED: LEVOTHYROXINE NA 100 MCG TABLET (FP) GT SCH (07:00)
[2023-01-22] MEDS: INSULIN SLIDING SCALE (NOVOLOG) 1 VIAL SQ SCH ×4 (08:50→16:58)
[2023-01-22] MEDS: FAMOTIDINE 40 MG/5 ML ORAL SUSPENSION GT SCH ×2 (08:51→10:32)
[2023-01-22] MEDS ORDERED: ZINC AMINO ACID CHELATE GT SCH (10:00)
[2023-01-22] MEDS ORDERED: ASCORBIC ACID 500 MG/5 ML UNIT DOSE CUP GT SCH (10:00)
[2023-01-22] MEDS ORDERED: amLODIPine BESYLATE 10 MG TABLET (FP) GT SCH (10:00)
[2023-01-22] MEDS ORDERED: FERROUS SO4 300 MG/5 ML ORAL SOLN UNIT DOSE CUPS GT SCH (10:00)
[2023-01-22] MEDS ORDERED: DIGOXIN 0.125 MG TABLET GT SCH (10:00)
[2023-01-22] MEDS ORDERED: ACETAMINOPHEN 650 MG/20.3 ML ORAL SOLUTION (CUPS) GT SCH (10:00)
[2023-01-22] MEDS ORDERED: LOSARTAN POTASSIUM 50 MG TABLET GT SCH (10:00)
[2023-01-22] MEDS ORDERED: predniSONE 10 MG TABLET (UD) GT SCH ×2 (10:00)
[2023-01-22 10:09] LABS: HEMATOCRIT 28.2 % (35.4-49); HEMOGLOBIN 9.3 GM/dL (11.7-16.9); MCH 31.6 pg (25.7-33.7); MEAN CELL VOLUME 95.7 fl (80-96); MEAN PLT VOLUME 7.6 fl (7.5-11.1); PLATELET COUNT 310 10^3/uL (134-434); RBC 2.95 M/mm3 (4.00-5.60); RDW 17.3 % (11.9-15.9); WHITE BLOOD COUNT 9.8 K/mm3 (4.0-10.0)
[2023-01-22] MEDS: levETIRAcetam 500 MG/5 ML ORAL SOLUTION (UNIT-DOSE CUPS) GT SCH (10:26)
[2023-01-22] MEDS: Lacosamide 50 MG/5 ML ORAL SOLUTION UNIT CUPS GT SCH (10:28)
[2023-01-22 10:29] LABS: POTASSIUM 4.6 mmol/L (3.5-5.1)
[2023-01-22 10:33] LABS: ALBUMIN 1.9 g/dl (3.4-5.0); CALCIUM 7.8 mg/dL (8.5-10.1); MAGNESIUM 2.5 mg/dL (1.8-2.4)
[2023-01-22 10:34] LABS: BLOOD UREA NITROGEN 32.9 mg/dL (7-18)
[2023-01-22] MEDS: OXcarbazepine 300 MG/5 ML UNIT DOSE CUPS GT SCH ×2 (10:34→14:28)
[2023-01-22 10:36] LABS: CREATININE 0.5 mg/dL (0.55-1.3); PHOSPHOROUS 3.2 mg/dL (2.5-4.9)
[2023-01-22 10:38] LABS: BILIRUBIN,TOTAL 0.5 mg/dL (0.2-1); TOT PROT 5.8 g/dl (6.4-8.2)
[2023-01-22 10:48] LABS: ANISOCYTOSIS 0; HELMET CELLS 0; HOWELL-JOLLY BODIES 0; MACROCYTOSIS 0; OVALOCYTE 0; ROULEAU 0; SICKELED CELLS 0; TARGET CELLS 0; TEAR DROP CELLS 0; TOXIC GRANULATION 0
[2023-01-22 15:24] VITALS: BP 103/59; PULSE 69; TEMP 98.1
[2023-01-22 15:36] VITALS: RESP 15
[2023-01-24] MEDS ORDERED: predniSONE 10 MG TABLET (UD) GT SCH (10:00)
[2023-01-26] MEDS ORDERED: predniSONE 10 MG TABLET (UD) GT SCH (10:00)
== END 2023-01-22 17:41 ==
LOC: JER 19:39 → INTOOBSV 20:15 → JERBED 20:15 → J5S 21:30
PROVIDERS: ADMIT Internal Medicine; ATTEND Internal Medicine
PROC: 3E013VG Introduction of Insulin into Subcutaneous Tissue, Percutaneous Approach (ICD-10-PCS; principal; 2023-01-21)
DX: J96.10 Chronic respiratory failure, unspecified whether with hypoxia or hypercapnia (principal); N40.0 Benign prostatic hyperplasia without lower urinary tract symptoms; Z93.1 Gastrostomy status; E03.9 Hypothyroidism, unspecified; K21.9 Gastro-esophageal reflux disease without esophagitis; E11.9 Type 2 diabetes mellitus without complications; J44.9 Chronic obstructive pulmonary disease, unspecified; Z88.8 Allergy status to other drugs, medicaments and biological substances
CPT/HCPCS: 36415; 80053; 82962; 83735; 84100; 85025; 94002; 96372; 99285-25; G0378

== ENCOUNTER 2023-01-22 19:18 | Observation (INO) | payer OTHER ==
[2023-01-22] MEDS ORDERED: ACETAMINOPHEN 650 MG/20.3 ML ORAL SOLUTION (CUPS) GT PRN (20:52)
[2023-01-22] MEDS: levETIRAcetam 500 MG/5 ML ORAL SOLUTION (UNIT-DOSE CUPS) GT SCH (22:21)
[2023-01-22] MEDS: INSULIN SLIDING SCALE (NOVOLOG) 1 VIAL SQ SCH (22:21)
[2023-01-22] MEDS: FAMOTIDINE 40 MG/5 ML ORAL SUSPENSION GT SCH (22:21)
[2023-01-22] MEDS: OXcarbazepine 300 MG/5 ML UNIT DOSE CUPS GT SCH (22:21)
[2023-01-22] MEDS: DOXAZOSIN MESYLATE 4 MG TABLET GT SCH (22:21)
[2023-01-22] MEDS: Lacosamide 50 MG/5 ML ORAL SOLUTION UNIT CUPS GT SCH (22:21)
[2023-01-23] MEDS: INSULIN SLIDING SCALE (NOVOLOG) 1 VIAL SQ SCH ×4 (03:22→21:22)
[2023-01-23] MEDS: OXcarbazepine 300 MG/5 ML UNIT DOSE CUPS GT SCH ×3 (06:59→21:13)
[2023-01-23] MEDS ORDERED: LEVOTHYROXINE NA 100 MCG TABLET (FP) ONE (07:54)
[2023-01-23] MEDS: LEVOTHYROXINE NA 100 MCG TABLET (FP) GT SCH (07:56)
[2023-01-23] MEDS ORDERED: Lacosamide 50 MG/5 ML ORAL SOLUTION UNIT CUPS ONE ×2 (09:50→19:41)
[2023-01-23] MEDS: LOSARTAN POTASSIUM 50 MG TABLET GT SCH (09:53)
[2023-01-23] MEDS: predniSONE 10 MG TABLET (UD) GT SCH (09:53)
[2023-01-23] MEDS: FERROUS SO4 300 MG/5 ML ORAL SOLN UNIT DOSE CUPS GT SCH (09:53)
[2023-01-23] MEDS: levETIRAcetam 500 MG/5 ML ORAL SOLUTION (UNIT-DOSE CUPS) GT SCH ×2 (09:55→23:06)
[2023-01-23] MEDS: FAMOTIDINE 40 MG/5 ML ORAL SUSPENSION GT SCH ×2 (09:56→21:13)
[2023-01-23] MEDS: amLODIPine BESYLATE 10 MG TABLET (FP) GT SCH (09:56)
[2023-01-23] MEDS: ASCORBIC ACID 500 MG TABLET (FP) GT SCH (09:56)
[2023-01-23] MEDS: DIGOXIN 0.125 MG TABLET GT SCH (09:56)
[2023-01-23] MEDS: Lacosamide 50 MG/5 ML ORAL SOLUTION UNIT CUPS GT SCH ×2 (09:56→21:13)
[2023-01-23] MEDS ORDERED: ZINC AMINO ACID CHELATE GT SCH (10:00)
[2023-01-23] MEDS: DOXAZOSIN MESYLATE 4 MG TABLET GT SCH (21:13)
[2023-01-24] MEDS: INSULIN SLIDING SCALE (NOVOLOG) 1 VIAL SQ SCH ×4 (04:03→21:47)
[2023-01-24] MEDS: OXcarbazepine 300 MG/5 ML UNIT DOSE CUPS GT SCH ×3 (05:44→21:50)
[2023-01-24] MEDS: LEVOTHYROXINE NA 100 MCG TABLET (FP) GT SCH (07:13)
[2023-01-24] MEDS: FERROUS SO4 300 MG/5 ML ORAL SOLN UNIT DOSE CUPS GT SCH (10:19)
[2023-01-24] MEDS: ENOXAPARIN NA (PORCINE) 40 MG/0.4 ML DISP.SYRIN SQ SCH (10:19)
[2023-01-24] MEDS: ASCORBIC ACID 500 MG TABLET (FP) GT SCH (10:20)
[2023-01-24] MEDS: predniSONE 10 MG TABLET (UD) GT SCH (10:20)
[2023-01-24] MEDS: amLODIPine BESYLATE 10 MG TABLET (FP) GT SCH (10:20)
[2023-01-24] MEDS: LOSARTAN POTASSIUM 50 MG TABLET GT SCH (10:20)
[2023-01-24] MEDS: DIGOXIN 0.125 MG TABLET GT SCH (10:21)
[2023-01-24] MEDS: Lacosamide 50 MG/5 ML ORAL SOLUTION UNIT CUPS GT SCH ×2 (10:26→21:48)
[2023-01-24] MEDS: FAMOTIDINE 40 MG/5 ML ORAL SUSPENSION GT SCH ×2 (10:27→21:51)
[2023-01-24] MEDS: levETIRAcetam 500 MG/5 ML ORAL SOLUTION (UNIT-DOSE CUPS) GT SCH ×2 (11:28→21:48)
[2023-01-24] MEDS: DOXAZOSIN MESYLATE 4 MG TABLET GT SCH (21:52)
[2023-01-25] MEDS: INSULIN SLIDING SCALE (NOVOLOG) 1 VIAL SQ SCH ×4 (02:23→21:21)
[2023-01-25] MEDS: LEVOTHYROXINE NA 100 MCG TABLET (FP) GT SCH (06:07)
[2023-01-25] MEDS: OXcarbazepine 300 MG/5 ML UNIT DOSE CUPS GT SCH ×3 (06:08→21:22)
[2023-01-25] MEDS: Lacosamide 50 MG/5 ML ORAL SOLUTION UNIT CUPS GT SCH ×2 (09:41→21:21)
[2023-01-25] MEDS: FERROUS SO4 300 MG/5 ML ORAL SOLN UNIT DOSE CUPS GT SCH (09:41)
[2023-01-25] MEDS: levETIRAcetam 500 MG/5 ML ORAL SOLUTION (UNIT-DOSE CUPS) GT SCH ×2 (09:41→21:21)
[2023-01-25] MEDS: DIGOXIN 0.125 MG TABLET GT SCH (09:42)
[2023-01-25] MEDS: LOSARTAN POTASSIUM 50 MG TABLET GT SCH (09:43)
[2023-01-25] MEDS: ENOXAPARIN NA (PORCINE) 40 MG/0.4 ML DISP.SYRIN SQ SCH (09:44)
[2023-01-25] MEDS: ASCORBIC ACID 500 MG TABLET (FP) GT SCH (09:44)
[2023-01-25] MEDS: amLODIPine BESYLATE 10 MG TABLET (FP) GT SCH (09:44)
[2023-01-25] MEDS: FAMOTIDINE 40 MG/5 ML ORAL SUSPENSION GT SCH ×2 (09:46→21:23)
[2023-01-25] MEDS: FUROSEMIDE 40 MG/5 ML UNIT-DOSE CUP GT SCH (09:46)
[2023-01-25 09:53] LABS: BASO % 0.6 % (0-2.0); EOS % 0.5 % (0-4.5); HEMATOCRIT 26.2 % (35.4-49); HEMOGLOBIN 8.7 GM/dL (11.7-16.9); LYMPH % 11.9 % (8-40); MCH 31.8 pg (25.7-33.7); MCHC 33.3 g/dl (32.0-35.9); MEAN CELL VOLUME 95.4 fl (80-96); MEAN PLT VOLUME 7.4 fl (7.5-11.1); MONO % 5.6 % (3.8-10.2); NEUT % 81.4 % (42.8-82.8); PLATELET COUNT 335 10^3/uL (134-434); RBC 2.75 M/mm3 (4.00-5.60); RDW 17.9 % (11.9-15.9); WHITE BLOOD COUNT 7.5 K/mm3 (4.0-10.0)
[2023-01-25 12:05] LABS: ALBUMIN 1.6 g/dl (3.4-5.0); BILIRUBIN,TOTAL 0.5 mg/dL (0.2-1); BLOOD UREA NITROGEN 28.5 mg/dL (7-18); CALCIUM 7.6 mg/dL (8.5-10.1); CREATININE 0.5 mg/dL (0.55-1.3); MAGNESIUM 2.3 mg/dL (1.8-2.4); PHOSPHOROUS 2.7 mg/dL (2.5-4.9); POTASSIUM 3.9 mmol/L (3.5-5.1); TOT PROT 5.2 g/dl (6.4-8.2)
[2023-01-25] MEDS ORDERED: FUROSEMIDE 40 MG/4 ML INJECTABLE VIAL IVPUSH ONE (18:00)
[2023-01-25] MEDS: DOXAZOSIN MESYLATE 4 MG TABLET GT SCH (21:22)
[2023-01-26] MEDS: INSULIN SLIDING SCALE (NOVOLOG) 1 VIAL SQ SCH ×4 (02:22→22:19)
[2023-01-26] MEDS: OXcarbazepine 300 MG/5 ML UNIT DOSE CUPS GT SCH ×3 (05:28→22:18)
[2023-01-26] MEDS: LEVOTHYROXINE NA 100 MCG TABLET (FP) GT SCH (06:12)
[2023-01-26] MEDS: ENOXAPARIN NA (PORCINE) 40 MG/0.4 ML DISP.SYRIN SQ SCH (11:13)
[2023-01-26] MEDS: levETIRAcetam 500 MG/5 ML ORAL SOLUTION (UNIT-DOSE CUPS) GT SCH ×2 (11:13→22:19)
[2023-01-26] MEDS: ASCORBIC ACID 500 MG TABLET (FP) GT SCH (11:14)
[2023-01-26] MEDS: DIGOXIN 0.125 MG TABLET GT SCH (11:14)
[2023-01-26] MEDS: Lacosamide 50 MG/5 ML ORAL SOLUTION UNIT CUPS GT SCH ×2 (11:14→22:19)
[2023-01-26] MEDS: FERROUS SO4 300 MG/5 ML ORAL SOLN UNIT DOSE CUPS GT SCH (11:15)
[2023-01-26] MEDS: LOSARTAN POTASSIUM 50 MG TABLET GT SCH (11:15)
[2023-01-26] MEDS: amLODIPine BESYLATE 10 MG TABLET (FP) GT SCH (11:15)
[2023-01-26] MEDS: FAMOTIDINE 40 MG/5 ML ORAL SUSPENSION GT SCH ×2 (11:17→22:17)
[2023-01-26] MEDS: FUROSEMIDE 40 MG/5 ML UNIT-DOSE CUP GT SCH (11:57)
[2023-01-26] MEDS: DOXAZOSIN MESYLATE 4 MG TABLET GT SCH (22:20)
[2023-01-27] MEDS: INSULIN SLIDING SCALE (NOVOLOG) 1 VIAL SQ SCH ×4 (02:55→22:00)
[2023-01-27] MEDS: OXcarbazepine 300 MG/5 ML UNIT DOSE CUPS GT SCH ×3 (06:09→22:08)
[2023-01-27] MEDS: LEVOTHYROXINE NA 100 MCG TABLET (FP) GT SCH (06:10)
[2023-01-27] MEDS: amLODIPine BESYLATE 10 MG TABLET (FP) GT SCH (10:32)
[2023-01-27] MEDS: ASCORBIC ACID 500 MG TABLET (FP) GT SCH (10:32)
[2023-01-27] MEDS: LOSARTAN POTASSIUM 50 MG TABLET GT SCH (10:32)
[2023-01-27] MEDS: FUROSEMIDE 40 MG/5 ML UNIT-DOSE CUP GT SCH (10:33)
[2023-01-27] MEDS: ENOXAPARIN NA (PORCINE) 40 MG/0.4 ML DISP.SYRIN SQ SCH (10:33)
[2023-01-27] MEDS: levETIRAcetam 500 MG/5 ML ORAL SOLUTION (UNIT-DOSE CUPS) GT SCH ×2 (10:34→22:07)
[2023-01-27] MEDS: FAMOTIDINE 40 MG/5 ML ORAL SUSPENSION GT SCH ×2 (10:34→22:07)
[2023-01-27] MEDS: Lacosamide 50 MG/5 ML ORAL SOLUTION UNIT CUPS GT SCH ×2 (10:35→22:07)
[2023-01-27] MEDS: FERROUS SO4 300 MG/5 ML ORAL SOLN UNIT DOSE CUPS GT SCH (10:36)
[2023-01-27] MEDS: DIGOXIN 0.125 MG TABLET GT SCH (10:37)
[2023-01-27 10:43] LABS: HEMATOCRIT 28.5 % (35.4-49); HEMOGLOBIN 9.8 GM/dL (11.7-16.9); MCH 32.1 pg (25.7-33.7); MCHC 34.4 g/dl (32.0-35.9); MEAN CELL VOLUME 93.3 fl (80-96); MEAN PLT VOLUME 6.7 fl (7.5-11.1); PLATELET COUNT 324 10^3/uL (134-434); RBC 3.05 M/mm3 (4.00-5.60); RDW 17.5 % (11.9-15.9); WHITE BLOOD COUNT 10.6 K/mm3 (4.0-10.0)
[2023-01-27 11:04] LABS: POTASSIUM 3.8 mmol/L (3.5-5.1)
[2023-01-27 11:09] LABS: CALCIUM 7.7 mg/dL (8.5-10.1)
[2023-01-27 11:10] LABS: ALBUMIN 1.8 g/dl (3.4-5.0); BLOOD UREA NITROGEN 33.9 mg/dL (7-18)
[2023-01-27 11:12] LABS: CREATININE 0.6 mg/dL (0.55-1.3)
[2023-01-27 11:14] LABS: BILIRUBIN,TOTAL 0.5 mg/dL (0.2-1); TOT PROT 5.9 g/dl (6.4-8.2)
[2023-01-27] MEDS: DOXAZOSIN MESYLATE 4 MG TABLET GT SCH (22:07)
[2023-01-28] MEDS: INSULIN SLIDING SCALE (NOVOLOG) 1 VIAL SQ SCH ×4 (02:41→22:21)
[2023-01-28] MEDS: OXcarbazepine 300 MG/5 ML UNIT DOSE CUPS GT SCH ×3 (05:42→22:21)
[2023-01-28] MEDS: LEVOTHYROXINE NA 100 MCG TABLET (FP) GT SCH (06:00)
[2023-01-28] MEDS: ENOXAPARIN NA (PORCINE) 40 MG/0.4 ML DISP.SYRIN SQ SCH (10:24)
[2023-01-28] MEDS: levETIRAcetam 500 MG/5 ML ORAL SOLUTION (UNIT-DOSE CUPS) GT SCH ×2 (10:24→22:21)
[2023-01-28] MEDS: Lacosamide 50 MG/5 ML ORAL SOLUTION UNIT CUPS GT SCH ×2 (10:24→22:21)
[2023-01-28] MEDS: FERROUS SO4 300 MG/5 ML ORAL SOLN UNIT DOSE CUPS GT SCH (10:24)
[2023-01-28] MEDS: FUROSEMIDE 40 MG/5 ML UNIT-DOSE CUP GT SCH (10:24)
[2023-01-28] MEDS: DIGOXIN 0.125 MG TABLET GT SCH (10:25)
[2023-01-28] MEDS: LOSARTAN POTASSIUM 50 MG TABLET GT SCH (10:25)
[2023-01-28] MEDS: amLODIPine BESYLATE 10 MG TABLET (FP) GT SCH (10:25)
[2023-01-28] MEDS: ASCORBIC ACID 500 MG TABLET (FP) GT SCH (10:25)
[2023-01-28] MEDS: FAMOTIDINE 40 MG/5 ML ORAL SUSPENSION GT SCH ×2 (13:56→22:23)
[2023-01-28 15:49] LABS: BASO % 0.6 % (0-2.0); EOS % 0.6 % (0-4.5); HEMATOCRIT 27.5 % (35.4-49); LYMPH % 25.9 % (8-40); MCH 31.2 pg (25.7-33.7); MCHC 32.7 g/dl (32.0-35.9); MEAN CELL VOLUME 95.4 fl (80-96); MEAN PLT VOLUME 7.5 fl (7.5-11.1); MONO % 5.8 % (3.8-10.2); NEUT % 67.1 % (42.8-82.8); PLATELET COUNT 325 10^3/uL (134-434); RBC 2.88 M/mm3 (4.00-5.60); WHITE BLOOD COUNT 9.5 K/mm3 (4.0-10.0)
[2023-01-28 16:11] LABS: POTASSIUM 3.8 mmol/L (3.5-5.1)
[2023-01-28 16:13] LABS: CALCIUM 7.4 mg/dL (8.5-10.1)
[2023-01-28 16:14] LABS: ALBUMIN 1.6 g/dl (3.4-5.0); BLOOD UREA NITROGEN 41.6 mg/dL (7-18)
[2023-01-28 16:17] LABS: CREATININE 0.7 mg/dL (0.55-1.3)
[2023-01-28 16:18] LABS: BILIRUBIN,TOTAL 0.5 mg/dL (0.2-1); TOT PROT 5.7 g/dl (6.4-8.2)
[2023-01-28] MEDS: DOXAZOSIN MESYLATE 4 MG TABLET GT SCH (22:20)
[2023-01-29] MEDS: INSULIN SLIDING SCALE (NOVOLOG) 1 VIAL SQ SCH ×4 (03:10→20:00)
[2023-01-29] MEDS: OXcarbazepine 300 MG/5 ML UNIT DOSE CUPS GT SCH ×2 (05:58→14:57)
[2023-01-29] MEDS: LEVOTHYROXINE NA 100 MCG TABLET (FP) GT SCH (06:00)
[2023-01-29] MEDS: amLODIPine BESYLATE 10 MG TABLET (FP) GT SCH (09:27)
[2023-01-29] MEDS ORDERED: COLLAGENASE CLOSTRIDIUM HIST. 30 GRAMS TUBE TP SCH (10:00)
[2023-01-29] MEDS: FERROUS SO4 300 MG/5 ML ORAL SOLN UNIT DOSE CUPS GT SCH (10:08)
[2023-01-29] MEDS: ENOXAPARIN NA (PORCINE) 40 MG/0.4 ML DISP.SYRIN SQ SCH (10:08)
[2023-01-29] MEDS: DIGOXIN 0.125 MG TABLET GT SCH (10:09)
[2023-01-29] MEDS: LOSARTAN POTASSIUM 50 MG TABLET GT SCH (10:09)
[2023-01-29] MEDS: levETIRAcetam 500 MG/5 ML ORAL SOLUTION (UNIT-DOSE CUPS) GT SCH (10:10)
[2023-01-29] MEDS: Lacosamide 50 MG/5 ML ORAL SOLUTION UNIT CUPS GT SCH (10:10)
[2023-01-29] MEDS: ASCORBIC ACID 500 MG TABLET (FP) GT SCH (10:10)
[2023-01-29] MEDS: FAMOTIDINE 40 MG/5 ML ORAL SUSPENSION GT SCH (10:11)
[2023-01-29] MEDS: FUROSEMIDE 40 MG/5 ML UNIT-DOSE CUP GT SCH (10:12)
[2023-01-29 11:48] LABS: HEMATOCRIT 23.7 % (35.4-49); HEMOGLOBIN 8.1 GM/dL (11.7-16.9); MCH 32.2 pg (25.7-33.7); MCHC 34.3 g/dl (32.0-35.9); MEAN PLT VOLUME 7.6 fl (7.5-11.1); PLATELET COUNT 290 10^3/uL (134-434); RBC 2.52 M/mm3 (4.00-5.60); RDW 17.2 % (11.9-15.9); WHITE BLOOD COUNT 6.4 K/mm3 (4.0-10.0)
[2023-01-29 12:08] LABS: ALBUMIN 1.5 g/dl (3.4-5.0)
[2023-01-29 12:12] LABS: BLOOD UREA NITROGEN 46.8 mg/dL (7-18); CALCIUM 7.6 mg/dL (8.5-10.1); CREATININE 0.7 mg/dL (0.55-1.3)
[2023-01-29 12:14] LABS: BILIRUBIN,TOTAL 0.6 mg/dL (0.2-1); TOT PROT 5.4 g/dl (6.4-8.2)
[2023-01-29 12:40] VITALS: BMI 24.5
[2023-01-29 17:50] VITALS: RESP 18
[2023-01-29 19:54] VITALS: BP 113/66; PULSE 70; TEMP 98
== END 2023-01-29 19:45 ==
LOC: JER 19:18 → JERBED 20:34 → UNDOADMOB 20:34 → OBSVTOIN 20:42 → INTOOBSV 20:42 → JERBED 01-23 16:10 → J5S 01-23 21:34
PROVIDERS: ADMIT Internal Medicine
PROC: 3E023GC Introduction of Other Therapeutic Substance into Muscle, Percutaneous Approach (ICD-10-PCS; principal; 2023-01-23)
PROC: 3E033GC Introduction of Other Therapeutic Substance into Peripheral Vein, Percutaneous Approach (ICD-10-PCS; 2023-01-23)
DX: J96.11 Chronic respiratory failure with hypoxia (principal); J96.91 Respiratory failure, unspecified with hypoxia; J18.9 Pneumonia, unspecified organism; I50.9 Heart failure, unspecified; R65.21 Severe sepsis with septic shock; I11.0 Hypertensive heart disease with heart failure; E11.9 Type 2 diabetes mellitus without complications; J45.909 Unspecified asthma, uncomplicated; Z93.0 Tracheostomy status; E16.2 Hypoglycemia, unspecified; Z99.11 Dependence on respirator [ventilator] status; Z87.820 Personal history of traumatic brain injury; Z88.8 Allergy status to other drugs, medicaments and biological substances; K21.9 Gastro-esophageal reflux disease without esophagitis; Z93.1 Gastrostomy status; E03.9 Hypothyroidism, unspecified; G40.909 Epilepsy, unspecified, not intractable, without status epilepticus; Z29.8 Encounter for other specified prophylactic measures; E87.1 Hypo-osmolality and hyponatremia
CPT/HCPCS: 36415; 71045-TC-FY; 80053; 80162; 82962; 83735; 84100; 85025; 85027; 86850; 86900; 86901; 87635; 94002; 96372; 96374; 99285-25; G0378

== ENCOUNTER 2023-01-29 21:14 | Inpatient (IN) | payer OTHER ==
[2023-01-29 22:34] LABS: ARTERIAL BLD GAS O2 SATURATION 88.7 % (95-98); ARTERIAL BLOOD GAS PO2 49.3 mmHg (80-100); ARTERIAL BLOOD GAS pH 7.521 (7.350-7.450)
[2023-01-29 22:37] LABS: VENT MODE AC; VENT RATE 15
[2023-01-29] MEDS ORDERED: VANCOMYCIN 1,000 MG in DEXTROSE 5%-WATER - 250 ML IVPB ONE (23:29)
[2023-01-29] MEDS ORDERED: MEROPENEM 1 GM in DEXTROSE 5%-WATER 100 ML IVPB ONE (23:31)
[2023-01-29] MEDS ORDERED: VANCOMYCIN 1 GRAM (PRE-DOCKED) 1,000 MG/250 ML BAG IVPB ONE (23:53)
[2023-01-29] MEDS ORDERED: MEROPENEM 1 GM VIAL (RESTRICTED TO ID) IVPB ONE (23:54)
[2023-01-30 00:51] LABS: BASO % 1.3 % (0-2.0); EOS % 1.4 % (0-4.5); HEMATOCRIT 25.9 % (35.4-49); HEMOGLOBIN 8.8 GM/dL (11.7-16.9); LYMPH % 13.4 % (8-40); MCH 31.4 pg (25.7-33.7); MEAN CELL VOLUME 92.5 fl (80-96); MEAN PLT VOLUME 7.1 fl (7.5-11.1); MONO % 6.4 % (3.8-10.2); NEUT % 77.5 % (42.8-82.8); PLATELET COUNT 292 10^3/uL (134-434); RDW 16.7 % (11.9-15.9); WHITE BLOOD COUNT 6.7 K/mm3 (4.0-10.0)
[2023-01-30 01:12] LABS: POTASSIUM 3.7 mmol/L (3.5-5.1)
[2023-01-30 01:15] LABS: CALCIUM 7.5 mg/dL (8.5-10.1)
[2023-01-30 01:16] LABS: ALBUMIN 1.7 g/dl (3.4-5.0); BLOOD UREA NITROGEN 46.7 mg/dL (7-18); MAGNESIUM 2.5 mg/dL (1.8-2.4)
[2023-01-30 01:18] LABS: CREATININE 0.6 mg/dL (0.55-1.3)
[2023-01-30 01:21] LABS: BILIRUBIN,TOTAL 0.6 mg/dL (0.2-1); TOT PROT 5.9 g/dl (6.4-8.2)
[2023-01-30 01:24] LABS: N-TERMINAL BNP 2940.6 pg/ml (5-450)
[2023-01-30] MEDS ORDERED: VANCOMYCIN/WATER FOR INJ (PEG) 1,000 MG/200 ML BAG IVPB SCH (08:30)
[2023-01-30] MEDS ORDERED: VANCOMYCIN 1,000 MG in DEXTROSE 5%-WATER - 250 ML IVPB SCH (08:30)
[2023-01-30] MEDS ORDERED: LACTATED RINGERS SOLUTION 1,000 ML/1,000 ML INFUS.BAG IV SCH (08:30)
[2023-01-30] MEDS ORDERED: PIPERACILLIN/TAZOB 4.5 GM 4.5 GM in DEXTROSE 5%-WATER 100 ML IVPB SCH (09:00)
[2023-01-30] MEDS ORDERED: ROCURONIUM BROMIDE 50 MG/5 ML SYRINGE IVPUSH ONE ×2 (09:30→11:41)
[2023-01-30 09:35] LABS: ARTERIAL BLD GAS O2 SATURATION 75.6 % (95-98); ARTERIAL BLOOD GAS BASE EXCESS 7.9 mmol/L (-2-2); ARTERIAL BLOOD GAS pH 7.528 (7.350-7.450)
[2023-01-30 09:41] LABS: ALLENS TEST POSITIVE
[2023-01-30] MEDS ORDERED: ROCURONIUM BROMIDE 50 MG/5 ML VIAL ONE (09:41)
[2023-01-30 09:42] LABS: VENT MODE AC
[2023-01-30 09:43] LABS: VENT RATE 15
[2023-01-30 09:54] LABS: ARTERIAL BLOOD GAS PO2 35.9 mmHg (80-100)
[2023-01-30] MEDS ORDERED: ENOXAPARIN NA (PORCINE) 40 MG/0.4 ML DISP.SYRIN SQ SCH (10:00)
[2023-01-30] MEDS ORDERED: DIGOXIN 0.125 MG TABLET GT SCH (10:00)
[2023-01-30] MEDS ORDERED: Lacosamide 50 MG/5 ML ORAL SOLUTION UNIT CUPS GT SCH (10:00)
[2023-01-30] MEDS ORDERED: amLODIPine BESYLATE 10 MG TABLET (FP) GT SCH (10:00)
[2023-01-30] MEDS ORDERED: FERROUS SO4 300 MG/5 ML ORAL SOLN UNIT DOSE CUPS GT SCH (10:00)
[2023-01-30] MEDS ORDERED: LEVOTHYROXINE NA 100 MCG TABLET (FP) GT SCH (10:00)
[2023-01-30] MEDS ORDERED: LOSARTAN POTASSIUM 50 MG TABLET GT SCH (10:00)
[2023-01-30] MEDS ORDERED: FAMOTIDINE 20 MG/2.5 ML ORAL LIQUID GT SCH (10:00)
[2023-01-30] MEDS ORDERED: levETIRAcetam 500 MG/5 ML ORAL SOLUTION (UNIT-DOSE CUPS) GT SCH (10:00)
[2023-01-30] MEDS ORDERED: MUPIROCIN 2% TOPICAL OINTMENT FOR DECOLONIZATION NS SCH (11:00)
[2023-01-30] MEDS ORDERED: INSULIN SLIDING SCALE (NOVOLOG) 1 VIAL SQ SCH (11:00)
[2023-01-30 11:36] LABS: ARTERIAL BLD GAS O2 SATURATION 95.6 % (95-98); ARTERIAL BLOOD GAS BASE EXCESS 6.4 mmol/L (-2-2); ARTERIAL BLOOD GAS PO2 68.8 mmHg (80-100); ARTERIAL BLOOD GAS pH 7.533 (7.350-7.450)
[2023-01-30 11:37] LABS: ALLENS TEST POSITIVE
[2023-01-30 11:38] LABS: VENT MODE A/C; VENT RATE 22
[2023-01-30] MEDS ORDERED: PROPOFOL 1,000,000 MCG/100 ML VIAL IVPB SCH (13:00)
[2023-01-30] MEDS: LACTATED RINGERS SOLUTION 1,000 ML/1,000 ML INFUS.BAG IV SCH (13:07)
[2023-01-30] MEDS ORDERED: OXcarbazepine 300 MG/5 ML UNIT DOSE CUPS GT SCH (14:00)
[2023-01-30] MEDS: INSULIN SLIDING SCALE (NOVOLOG) 1 VIAL SQ SCH (16:19)
[2023-01-30] MEDS: OXcarbazepine 300 MG/5 ML UNIT DOSE CUPS GT SCH ×2 (16:35→21:38)
[2023-01-30 18:22] LABS: EPI CELLS 16 /uL (0-25.1); HYALINE CASTS 1 /uL (0-3.1); PH,URINE 5.5 (5.0-8.0); URINE APPEARANCE CLEAR; URINE BACTERIA 85 /uL (0-1359); URINE BILIRUBIN NEGATIVE (NEGATIVE); URINE COLOR YELLOW; URINE GLUCOSE (UA) NEGATIVE (NEGATIVE); URINE KETONE NEGATIVE (NEGATIVE); URINE LEUK ESTERASE 1+ (NEGATIVE); URINE NITRITE NEGATIVE (NEGATIVE); URINE PROTEIN 1+ (NEGATIVE); URINE RBC 549 /uL (0-23.9); URINE WBC 105 /uL (0-25.8)
[2023-01-30] MEDS ORDERED: ALBUTEROL SO4 2.5/IPRATROPIUM 0.5 INH SOL 3 ML VIAL.NEB. NEB PRN (20:08)
[2023-01-30] MEDS ORDERED: NOREPINEPHRINE BITARTRATE 4 MG/4 ML ML IV ONE (20:33)
[2023-01-30] MEDS: CHLORHEXIDINE GLUCONATE 4% CLEANSER FOR DECOLONIZATION TP SCH (21:36)
[2023-01-30] MEDS: Lacosamide 50 MG/5 ML ORAL SOLUTION UNIT CUPS GT SCH (21:36)
[2023-01-30] MEDS: levETIRAcetam 500 MG/5 ML ORAL SOLUTION (UNIT-DOSE CUPS) GT SCH (21:36)
[2023-01-30] MEDS: FAMOTIDINE 20 MG/2.5 ML ORAL LIQUID GT SCH (21:37)
[2023-01-30] MEDS: MUPIROCIN 2% TOPICAL OINTMENT FOR DECOLONIZATION NS SCH (21:39)
[2023-01-30] MEDS ORDERED: CHLORHEXIDINE GLUCONATE 4% CLEANSER FOR DECOLONIZATION TP SCH (22:00)
[2023-01-30] MEDS ORDERED: DOXAZOSIN MESYLATE 4 MG TABLET GT SCH ×2 (22:00)
[2023-01-30] MEDS: NOREPINEPHRINE BITARTRATE 4,000 MCG in DEXTROSE 5%-WATER - 496 ML IV SCH (22:45)
[2023-01-31] MEDS: LEVOTHYROXINE NA 100 MCG TABLET (FP) GT SCH ×2 (05:57→07:45)
[2023-01-31] MEDS: OXcarbazepine 300 MG/5 ML UNIT DOSE CUPS GT SCH ×3 (05:59→21:01)
[2023-01-31] MEDS: INSULIN SLIDING SCALE (NOVOLOG) 1 VIAL SQ SCH ×6 (06:22→23:24)
[2023-01-31] MEDS: LACTATED RINGERS SOLUTION 1,000 ML/1,000 ML INFUS.BAG IV SCH ×2 (06:44→12:05)
[2023-01-31 07:46] LABS: POTASSIUM 3.3 mmol/L (3.5-5.1)
[2023-01-31 07:50] LABS: ALBUMIN 1.6 g/dl (3.4-5.0); BLOOD UREA NITROGEN 45.1 mg/dL (7-18); CALCIUM 7.6 mg/dL (8.5-10.1); MAGNESIUM 2.5 mg/dL (1.8-2.4)
[2023-01-31 07:52] LABS: CREATININE 0.6 mg/dL (0.55-1.3); PHOSPHOROUS 3.8 mg/dL (2.5-4.9)
[2023-01-31 07:54] LABS: BILIRUBIN,TOTAL 0.7 mg/dL (0.2-1); TOT PROT 5.6 g/dl (6.4-8.2)
[2023-01-31 08:20] LABS: BASO % 1.2 % (0-2.0); EOS % 1.8 % (0-4.5); HEMATOCRIT 26.4 % (35.4-49); HEMOGLOBIN 8.8 GM/dL (11.7-16.9); LYMPH % 14.7 % (8-40); MCH 30.9 pg (25.7-33.7); MCHC 33.2 g/dl (32.0-35.9); MEAN CELL VOLUME 93.1 fl (80-96); MEAN PLT VOLUME 7.4 fl (7.5-11.1); MONO % 5.7 % (3.8-10.2); NEUT % 76.6 % (42.8-82.8); PLATELET COUNT 326 10^3/uL (134-434); RBC 2.83 M/mm3 (4.00-5.60); RDW 16.7 % (11.9-15.9); WHITE BLOOD COUNT 6.2 K/mm3 (4.0-10.0)
[2023-01-31] MEDS ORDERED: LOSARTAN POTASSIUM 50 MG TABLET GT SCH (10:00)
[2023-01-31] MEDS ORDERED: amLODIPine BESYLATE 10 MG TABLET (FP) GT SCH (10:00)
[2023-01-31] MEDS: ENOXAPARIN NA (PORCINE) 40 MG/0.4 ML DISP.SYRIN SQ SCH (10:06)
[2023-01-31] MEDS: Lacosamide 50 MG/5 ML ORAL SOLUTION UNIT CUPS GT SCH ×2 (10:07→21:01)
[2023-01-31] MEDS: levETIRAcetam 500 MG/5 ML ORAL SOLUTION (UNIT-DOSE CUPS) GT SCH ×2 (10:07→21:00)
[2023-01-31] MEDS: FAMOTIDINE 20 MG/2.5 ML ORAL LIQUID GT SCH ×2 (10:07→21:01)
[2023-01-31] MEDS: FERROUS SO4 300 MG/5 ML ORAL SOLN UNIT DOSE CUPS GT SCH (10:07)
[2023-01-31] MEDS: DIGOXIN 0.125 MG TABLET GT SCH (10:07)
[2023-01-31] MEDS: MUPIROCIN 2% TOPICAL OINTMENT FOR DECOLONIZATION NS SCH ×2 (10:09→21:01)
[2023-01-31] MEDS ORDERED: SODIUM CHLORIDE 0.9% 500 ML INFUS.BAG IV ONE (11:08)
[2023-01-31] MEDS ORDERED: POTASSIUM CHLORIDE ORAL LIQUID 20 MEQ/15 ML GT ONE (11:30)
[2023-01-31] MEDS: CHLORHEXIDINE GLUCONATE 4% CLEANSER FOR DECOLONIZATION TP SCH (21:01)
[2023-01-31] MEDS: NOREPINEPHRINE BITARTRATE 4,000 MCG in DEXTROSE 5%-WATER - 496 ML IV SCH (23:24)
[2023-02-01] MEDS: INSULIN SLIDING SCALE (NOVOLOG) 1 VIAL SQ SCH ×3 (05:37→18:10)
[2023-02-01] MEDS: LEVOTHYROXINE NA 100 MCG TABLET (FP) GT SCH (06:25)
[2023-02-01] MEDS: OXcarbazepine 300 MG/5 ML UNIT DOSE CUPS GT SCH ×3 (06:25→21:06)
[2023-02-01 07:00] LABS: HEMATOCRIT 25.4 % (35.4-49); HEMOGLOBIN 8.6 GM/dL (11.7-16.9); MCH 31.4 pg (25.7-33.7); MCHC 33.6 g/dl (32.0-35.9); MEAN CELL VOLUME 93.4 fl (80-96); MEAN PLT VOLUME 7.1 fl (7.5-11.1); PLATELET COUNT 298 10^3/uL (134-434); RBC 2.72 M/mm3 (4.00-5.60); RDW 16.8 % (11.9-15.9); WHITE BLOOD COUNT 5.5 K/mm3 (4.0-10.0)
[2023-02-01 07:16] LABS: POTASSIUM 3.2 mmol/L (3.5-5.1)
[2023-02-01 07:18] LABS: CALCIUM 7.3 mg/dL (8.5-10.1)
[2023-02-01 07:19] LABS: ALBUMIN 1.6 g/dl (3.4-5.0); BLOOD UREA NITROGEN 37.8 mg/dL (7-18); MAGNESIUM 2.5 mg/dL (1.8-2.4)
[2023-02-01 07:22] LABS: CREATININE 0.5 mg/dL (0.55-1.3); PHOSPHOROUS 3.2 mg/dL (2.5-4.9)
[2023-02-01 07:23] LABS: BILIRUBIN,TOTAL 0.6 mg/dL (0.2-1)
[2023-02-01 07:24] LABS: TOT PROT 5.4 g/dl (6.4-8.2)
[2023-02-01] MEDS: Lacosamide 50 MG/5 ML ORAL SOLUTION UNIT CUPS GT SCH ×2 (09:21→21:05)
[2023-02-01] MEDS: levETIRAcetam 500 MG/5 ML ORAL SOLUTION (UNIT-DOSE CUPS) GT SCH ×2 (09:21→21:05)
[2023-02-01] MEDS: ENOXAPARIN NA (PORCINE) 40 MG/0.4 ML DISP.SYRIN SQ SCH (09:21)
[2023-02-01] MEDS: FERROUS SO4 300 MG/5 ML ORAL SOLN UNIT DOSE CUPS GT SCH (09:21)
[2023-02-01] MEDS: POTASSIUM CHLORIDE ORAL LIQUID 20 MEQ/15 ML PO SCH ×2 (09:21→21:05)
[2023-02-01] MEDS: DIGOXIN 0.125 MG TABLET GT SCH (09:22)
[2023-02-01] MEDS: FAMOTIDINE 20 MG/2.5 ML ORAL LIQUID GT SCH ×2 (09:22→21:06)
[2023-02-01] MEDS: MUPIROCIN 2% TOPICAL OINTMENT FOR DECOLONIZATION NS SCH ×2 (09:22→21:05)
[2023-02-01] MEDS ORDERED: MIDAZOLAM HCL 2 MG/2 ML SINGLE DOSE VIAL IVPUSH ONE (10:27)
[2023-02-01] MEDS ORDERED: ATROPINE SULFATE 1 MG/10 ML DISP.SYRIN ONE (10:28)
[2023-02-01] MEDS ORDERED: MIDAZOLAM HCL 2 MG/2 ML SINGLE DOSE VIAL ONE (10:28)
[2023-02-01] MEDS: LACTATED RINGERS SOLUTION 1,000 ML/1,000 ML INFUS.BAG IV SCH ×2 (12:02→21:14)
[2023-02-01] MEDS: CHLORHEXIDINE GLUCONATE 4% CLEANSER FOR DECOLONIZATION TP SCH (21:05)
[2023-02-02] MEDS: INSULIN SLIDING SCALE (NOVOLOG) 1 VIAL SQ SCH ×5 (00:30→23:05)
[2023-02-02] MEDS: OXcarbazepine 300 MG/5 ML UNIT DOSE CUPS GT SCH ×3 (05:50→21:20)
[2023-02-02] MEDS: LEVOTHYROXINE NA 100 MCG TABLET (FP) GT SCH ×2 (05:51→06:48)
[2023-02-02 07:57] LABS: EOS % 1.5 % (0-4.5); HEMATOCRIT 25.5 % (35.4-49); HEMOGLOBIN 8.6 GM/dL (11.7-16.9); LYMPH % 16.8 % (8-40); MCH 31.7 pg (25.7-33.7); MCHC 33.5 g/dl (32.0-35.9); MEAN CELL VOLUME 94.5 fl (80-96); MEAN PLT VOLUME 7.2 fl (7.5-11.1); MONO % 5.6 % (3.8-10.2); NEUT % 75.1 % (42.8-82.8); PLATELET COUNT 280 10^3/uL (134-434); RDW 16.8 % (11.9-15.9)
[2023-02-02 08:18] LABS: POTASSIUM 4.1 mmol/L (3.5-5.1)
[2023-02-02 08:22] LABS: BLOOD UREA NITROGEN 35.9 mg/dL (7-18); CALCIUM 7.5 mg/dL (8.5-10.1)
[2023-02-02 08:23] LABS: ALBUMIN 1.6 g/dl (3.4-5.0); MAGNESIUM 2.5 mg/dL (1.8-2.4)
[2023-02-02 08:25] LABS: PHOSPHOROUS 2.2 mg/dL (2.5-4.9)
[2023-02-02 08:26] LABS: CREATININE 0.6 mg/dL (0.55-1.3)
[2023-02-02 08:27] LABS: BILIRUBIN,TOTAL 0.4 mg/dL (0.2-1); TOT PROT 5.4 g/dl (6.4-8.2)
[2023-02-02] MEDS ORDERED: NAPH,MB-DB/K PH,MBDB POWDER PACKET GT ONE (08:36)
[2023-02-02] MEDS: levETIRAcetam 500 MG/5 ML ORAL SOLUTION (UNIT-DOSE CUPS) GT SCH ×2 (09:47→21:20)
[2023-02-02] MEDS: MUPIROCIN 2% TOPICAL OINTMENT FOR DECOLONIZATION NS SCH ×2 (09:47→21:21)
[2023-02-02] MEDS: Lacosamide 50 MG/5 ML ORAL SOLUTION UNIT CUPS GT SCH ×2 (09:48→21:30)
[2023-02-02] MEDS: FERROUS SO4 300 MG/5 ML ORAL SOLN UNIT DOSE CUPS GT SCH (09:48)
[2023-02-02] MEDS: FAMOTIDINE 20 MG/2.5 ML ORAL LIQUID GT SCH ×2 (09:51→21:20)
[2023-02-02] MEDS: ENOXAPARIN NA (PORCINE) 40 MG/0.4 ML DISP.SYRIN SQ SCH (09:51)
[2023-02-02] MEDS: DIGOXIN 0.125 MG TABLET GT SCH (10:02)
[2023-02-02] MEDS ORDERED: INSULIN (NOVOLOG) ASPART 100 UNITS/ML 10ML VIAL ONE (12:56)
[2023-02-02] MEDS: CHLORHEXIDINE GLUCONATE 4% CLEANSER FOR DECOLONIZATION TP SCH (21:20)
[2023-02-03] MEDS ORDERED: FUROSEMIDE 40 MG/4 ML INJECTABLE VIAL IVPUSH ONE ×2 (05:07→05:30)
[2023-02-03] MEDS: OXcarbazepine 300 MG/5 ML UNIT DOSE CUPS GT SCH ×3 (06:25→22:11)
[2023-02-03] MEDS: LEVOTHYROXINE NA 100 MCG TABLET (FP) GT SCH (06:25)
[2023-02-03] MEDS: INSULIN SLIDING SCALE (NOVOLOG) 1 VIAL SQ SCH ×3 (06:26→18:29)
[2023-02-03 07:21] LABS: BASO % 1.1 % (0-2.0); EOS % 3.1 % (0-4.5); HEMATOCRIT 26.9 % (35.4-49); LYMPH % 18.9 % (8-40); MCH 31.8 pg (25.7-33.7); MCHC 33.6 g/dl (32.0-35.9); MEAN CELL VOLUME 94.9 fl (80-96); MEAN PLT VOLUME 7.3 fl (7.5-11.1); NEUT % 71.9 % (42.8-82.8); PLATELET COUNT 277 10^3/uL (134-434); RBC 2.83 M/mm3 (4.00-5.60); RDW 17.4 % (11.9-15.9); WHITE BLOOD COUNT 6.2 K/mm3 (4.0-10.0)
[2023-02-03 07:46] LABS: POTASSIUM 3.9 mmol/L (3.5-5.1)
[2023-02-03 07:48] LABS: ALBUMIN 1.6 g/dl (3.4-5.0); BLOOD UREA NITROGEN 29.9 mg/dL (7-18); CALCIUM 7.5 mg/dL (8.5-10.1); MAGNESIUM 2.5 mg/dL (1.8-2.4)
[2023-02-03 07:51] LABS: CREATININE 0.5 mg/dL (0.55-1.3); PHOSPHOROUS 2.6 mg/dL (2.5-4.9)
[2023-02-03 07:53] LABS: BILIRUBIN,TOTAL 0.4 mg/dL (0.2-1); TOT PROT 5.6 g/dl (6.4-8.2)
[2023-02-03] MEDS: Lacosamide 50 MG/5 ML ORAL SOLUTION UNIT CUPS GT SCH ×2 (09:51→21:59)
[2023-02-03] MEDS: ENOXAPARIN NA (PORCINE) 40 MG/0.4 ML DISP.SYRIN SQ SCH (09:52)
[2023-02-03] MEDS: FERROUS SO4 300 MG/5 ML ORAL SOLN UNIT DOSE CUPS GT SCH (09:52)
[2023-02-03] MEDS: levETIRAcetam 500 MG/5 ML ORAL SOLUTION (UNIT-DOSE CUPS) GT SCH ×2 (09:52→21:59)
[2023-02-03] MEDS: FAMOTIDINE 20 MG/2.5 ML ORAL LIQUID GT SCH ×2 (09:52→22:11)
[2023-02-03] MEDS: MUPIROCIN 2% TOPICAL OINTMENT FOR DECOLONIZATION NS SCH (09:53)
[2023-02-03] MEDS: DIGOXIN 0.125 MG TABLET GT SCH (12:44)
[2023-02-03] MEDS ORDERED: ALBUTEROL SO4 2.5/IPRATROPIUM 0.5 INH SOL 3 ML VIAL.NEB. NEB PRN (18:13)
[2023-02-03] MEDS ORDERED: CHLORHEXIDINE GLUCONATE 4% CLEANSER FOR DECOLONIZATION TP SCH (22:00)
[2023-02-03] MEDS ORDERED: MUPIROCIN 2% TOPICAL OINTMENT FOR DECOLONIZATION NS SCH (22:00)
[2023-02-03] MEDS: DOXAZOSIN MESYLATE 4 MG TABLET GT SCH (22:10)
[2023-02-04] MEDS: INSULIN SLIDING SCALE (NOVOLOG) 1 VIAL SQ SCH ×4 (00:13→17:39)
[2023-02-04] MEDS: LEVOTHYROXINE NA 100 MCG TABLET (FP) GT SCH (06:11)
[2023-02-04] MEDS: OXcarbazepine 300 MG/5 ML UNIT DOSE CUPS GT SCH ×3 (06:11→21:31)
[2023-02-04] MEDS: FAMOTIDINE 20 MG/2.5 ML ORAL LIQUID GT SCH ×2 (10:45→21:30)
[2023-02-04] MEDS: ENOXAPARIN NA (PORCINE) 40 MG/0.4 ML DISP.SYRIN SQ SCH (10:45)
[2023-02-04] MEDS: FERROUS SO4 300 MG/5 ML ORAL SOLN UNIT DOSE CUPS GT SCH (10:46)
[2023-02-04] MEDS: levETIRAcetam 500 MG/5 ML ORAL SOLUTION (UNIT-DOSE CUPS) GT SCH ×2 (10:46→21:29)
[2023-02-04] MEDS: Lacosamide 50 MG/5 ML ORAL SOLUTION UNIT CUPS GT SCH ×2 (10:46→21:29)
[2023-02-04] MEDS: DIGOXIN 0.125 MG TABLET GT SCH (10:47)
[2023-02-04] MEDS: DOXAZOSIN MESYLATE 4 MG TABLET GT SCH (21:32)
[2023-02-05] MEDS: INSULIN SLIDING SCALE (NOVOLOG) 1 VIAL SQ SCH ×5 (06:11→23:46)
[2023-02-05] MEDS: LEVOTHYROXINE NA 100 MCG TABLET (FP) GT SCH (06:12)
[2023-02-05] MEDS: OXcarbazepine 300 MG/5 ML UNIT DOSE CUPS GT SCH ×3 (06:12→21:17)
[2023-02-05] MEDS: ALBUTEROL SO4 2.5/IPRATROPIUM 0.5 INH SOL 3 ML VIAL.NEB. NEB SCH ×3 (08:40→20:30)
[2023-02-05 08:58] LABS: ARTERIAL BLD GAS O2 SATURATION 99.2 % (95-98); ARTERIAL BLOOD GAS BASE EXCESS 6.4 mmol/L (-2-2); ARTERIAL BLOOD GAS PO2 156.9 mmHg (80-100); ARTERIAL BLOOD GAS pH 7.516 (7.350-7.450)
[2023-02-05 08:59] LABS: ALLENS TEST POSITIVE; VENT MODE A/C
[2023-02-05 09:00] LABS: VENT RATE 12
[2023-02-05 10:20] LABS: BASO % 0.5 % (0-2.0); EOS % 1.9 % (0-4.5); HEMATOCRIT 27.5 % (35.4-49); HEMOGLOBIN 9.3 GM/dL (11.7-16.9); LYMPH % 18.3 % (8-40); MCH 31.6 pg (25.7-33.7); MEAN CELL VOLUME 92.9 fl (80-96); MEAN PLT VOLUME 7.3 fl (7.5-11.1); MONO % 3.5 % (3.8-10.2); NEUT % 75.8 % (42.8-82.8); PLATELET COUNT 261 10^3/uL (134-434); RBC 2.96 M/mm3 (4.00-5.60); RDW 17.8 % (11.9-15.9); WHITE BLOOD COUNT 7.7 K/mm3 (4.0-10.0)
[2023-02-05 10:43] LABS: POTASSIUM 3.3 mmol/L (3.5-5.1)
[2023-02-05 10:50] LABS: ALBUMIN 1.8 g/dl (3.4-5.0); BLOOD UREA NITROGEN 28.1 mg/dL (7-18); CALCIUM 7.5 mg/dL (8.5-10.1)
[2023-02-05] MEDS: DIGOXIN 0.125 MG TABLET GT SCH (10:51)
[2023-02-05] MEDS: levETIRAcetam 500 MG/5 ML ORAL SOLUTION (UNIT-DOSE CUPS) GT SCH ×2 (10:51→21:17)
[2023-02-05] MEDS: FERROUS SO4 300 MG/5 ML ORAL SOLN UNIT DOSE CUPS GT SCH (10:51)
[2023-02-05] MEDS: Lacosamide 50 MG/5 ML ORAL SOLUTION UNIT CUPS GT SCH ×2 (10:51→21:17)
[2023-02-05 10:52] LABS: CREATININE 0.5 mg/dL (0.55-1.3); MAGNESIUM 2.5 mg/dL (1.8-2.4); PHOSPHOROUS 3.2 mg/dL (2.5-4.9)
[2023-02-05] MEDS: ENOXAPARIN NA (PORCINE) 40 MG/0.4 ML DISP.SYRIN SQ SCH (10:52)
[2023-02-05] MEDS: FAMOTIDINE 20 MG/2.5 ML ORAL LIQUID GT SCH ×2 (10:52→21:18)
[2023-02-05 10:53] LABS: BILIRUBIN,TOTAL 0.6 mg/dL (0.2-1)
[2023-02-05 10:54] LABS: TOT PROT 5.9 g/dl (6.4-8.2)
[2023-02-05] MEDS: DOXAZOSIN MESYLATE 4 MG TABLET GT SCH (21:18)
[2023-02-06] MEDS: INSULIN SLIDING SCALE (NOVOLOG) 1 VIAL SQ SCH ×4 (05:57→23:12)
[2023-02-06] MEDS: LEVOTHYROXINE NA 100 MCG TABLET (FP) GT SCH (06:06)
[2023-02-06] MEDS: OXcarbazepine 300 MG/5 ML UNIT DOSE CUPS GT SCH ×3 (06:06→21:42)
[2023-02-06] MEDS: ALBUTEROL SO4 2.5/IPRATROPIUM 0.5 INH SOL 3 ML VIAL.NEB. NEB SCH ×3 (07:45→20:17)
[2023-02-06] MEDS: levETIRAcetam 500 MG/5 ML ORAL SOLUTION (UNIT-DOSE CUPS) GT SCH ×2 (09:08→21:42)
[2023-02-06] MEDS: FERROUS SO4 300 MG/5 ML ORAL SOLN UNIT DOSE CUPS GT SCH (09:09)
[2023-02-06] MEDS: Lacosamide 50 MG/5 ML ORAL SOLUTION UNIT CUPS GT SCH ×2 (09:10→21:42)
[2023-02-06] MEDS: ENOXAPARIN NA (PORCINE) 40 MG/0.4 ML DISP.SYRIN SQ SCH (09:11)
[2023-02-06] MEDS: FAMOTIDINE 20 MG/2.5 ML ORAL LIQUID GT SCH ×2 (09:15→21:42)
[2023-02-06] MEDS: DIGOXIN 0.125 MG TABLET GT SCH (09:16)
[2023-02-06 10:11] LABS: HEMATOCRIT 26.4 % (35.4-49); HEMOGLOBIN 8.7 GM/dL (11.7-16.9); MCH 31.4 pg (25.7-33.7); MEAN CELL VOLUME 95.2 fl (80-96); MEAN PLT VOLUME 7.3 fl (7.5-11.1); PLATELET COUNT 257 10^3/uL (134-434); RBC 2.77 M/mm3 (4.00-5.60); RDW 17.4 % (11.9-15.9); WHITE BLOOD COUNT 9.3 K/mm3 (4.0-10.0)
[2023-02-06 10:38] LABS: POTASSIUM 3.5 mmol/L (3.5-5.1)
[2023-02-06 10:40] LABS: ALBUMIN 1.7 g/dl (3.4-5.0); CALCIUM 7.6 mg/dL (8.5-10.1)
[2023-02-06 10:41] LABS: BLOOD UREA NITROGEN 26.1 mg/dL (7-18)
[2023-02-06 10:43] LABS: CREATININE 0.5 mg/dL (0.55-1.3)
[2023-02-06 10:45] LABS: BILIRUBIN,TOTAL 0.4 mg/dL (0.2-1); TOT PROT 5.7 g/dl (6.4-8.2)
[2023-02-06] MEDS: SILVER SULFADIAZINE 1% TOP CREAM 50 GM JAR TP SCH ×2 (17:31→21:43)
[2023-02-06] MEDS: DOXAZOSIN MESYLATE 4 MG TABLET GT SCH (21:42)
[2023-02-07] MEDS: INSULIN SLIDING SCALE (NOVOLOG) 1 VIAL SQ SCH ×3 (05:43→17:48)
[2023-02-07] MEDS: OXcarbazepine 300 MG/5 ML UNIT DOSE CUPS GT SCH ×3 (05:47→22:15)
[2023-02-07] MEDS: LEVOTHYROXINE NA 100 MCG TABLET (FP) GT SCH (06:03)
[2023-02-07] MEDS: ALBUTEROL SO4 2.5/IPRATROPIUM 0.5 INH SOL 3 ML VIAL.NEB. NEB SCH ×3 (08:00→20:49)
[2023-02-07] MEDS: levETIRAcetam 500 MG/5 ML ORAL SOLUTION (UNIT-DOSE CUPS) GT SCH ×2 (10:31→22:14)
[2023-02-07] MEDS: FERROUS SO4 300 MG/5 ML ORAL SOLN UNIT DOSE CUPS GT SCH (10:31)
[2023-02-07] MEDS: Lacosamide 50 MG/5 ML ORAL SOLUTION UNIT CUPS GT SCH ×2 (10:31→22:14)
[2023-02-07] MEDS: ENOXAPARIN NA (PORCINE) 40 MG/0.4 ML DISP.SYRIN SQ SCH (10:32)
[2023-02-07] MEDS: DIGOXIN 0.125 MG TABLET GT SCH (10:32)
[2023-02-07] MEDS: FAMOTIDINE 20 MG/2.5 ML ORAL LIQUID GT SCH ×2 (10:33→22:14)
[2023-02-07] MEDS: SILVER SULFADIAZINE 1% TOP CREAM 50 GM JAR TP SCH ×2 (10:33→22:31)
[2023-02-07] MEDS: ACETAMINOPHEN 650 MG/20.3 ML ORAL SOLUTION (CUPS) GT PRN (12:56)
[2023-02-07] MEDS: DOXAZOSIN MESYLATE 4 MG TABLET GT SCH (22:15)
[2023-02-08] MEDS: INSULIN SLIDING SCALE (NOVOLOG) 1 VIAL SQ SCH ×4 (00:54→17:17)
[2023-02-08] MEDS: LEVOTHYROXINE NA 100 MCG TABLET (FP) GT SCH (06:21)
[2023-02-08] MEDS: ALBUTEROL SO4 2.5/IPRATROPIUM 0.5 INH SOL 3 ML VIAL.NEB. NEB SCH ×3 (08:52→20:02)
[2023-02-08] MEDS: Lacosamide 50 MG/5 ML ORAL SOLUTION UNIT CUPS GT SCH ×2 (12:03→22:19)
[2023-02-08] MEDS: levETIRAcetam 500 MG/5 ML ORAL SOLUTION (UNIT-DOSE CUPS) GT SCH ×2 (12:04→22:19)
[2023-02-08] MEDS: FERROUS SO4 300 MG/5 ML ORAL SOLN UNIT DOSE CUPS GT SCH (12:05)
[2023-02-08] MEDS: ENOXAPARIN NA (PORCINE) 40 MG/0.4 ML DISP.SYRIN SQ SCH (12:05)
[2023-02-08] MEDS: FAMOTIDINE 20 MG/2.5 ML ORAL LIQUID GT SCH ×2 (12:06→22:19)
[2023-02-08] MEDS: DIGOXIN 0.125 MG TABLET GT SCH (12:06)
[2023-02-08] MEDS: OXcarbazepine 300 MG/5 ML UNIT DOSE CUPS GT SCH ×3 (12:08→23:44)
[2023-02-08] MEDS: SILVER SULFADIAZINE 1% TOP CREAM 50 GM JAR TP SCH ×2 (15:23→22:20)
[2023-02-08 21:49] VITALS: BMI 25.9
[2023-02-08] MEDS: DOXAZOSIN MESYLATE 4 MG TABLET GT SCH (22:19)
[2023-02-09] MEDS: INSULIN SLIDING SCALE (NOVOLOG) 1 VIAL SQ SCH ×4 (00:40→17:30)
[2023-02-09] MEDS: OXcarbazepine 300 MG/5 ML UNIT DOSE CUPS GT SCH ×3 (06:52→23:13)
[2023-02-09] MEDS: LEVOTHYROXINE NA 100 MCG TABLET (FP) GT SCH (06:52)
[2023-02-09] MEDS: ALBUTEROL SO4 2.5/IPRATROPIUM 0.5 INH SOL 3 ML VIAL.NEB. NEB SCH ×3 (08:57→20:14)
[2023-02-09] MEDS: ENOXAPARIN NA (PORCINE) 40 MG/0.4 ML DISP.SYRIN SQ SCH (13:02)
[2023-02-09] MEDS: DIGOXIN 0.125 MG TABLET GT SCH (13:02)
[2023-02-09] MEDS: levETIRAcetam 500 MG/5 ML ORAL SOLUTION (UNIT-DOSE CUPS) GT SCH ×2 (13:03→23:12)
[2023-02-09] MEDS: Lacosamide 50 MG/5 ML ORAL SOLUTION UNIT CUPS GT SCH ×2 (13:03→23:13)
[2023-02-09] MEDS: FERROUS SO4 300 MG/5 ML ORAL SOLN UNIT DOSE CUPS GT SCH (13:03)
[2023-02-09] MEDS: FAMOTIDINE 20 MG/2.5 ML ORAL LIQUID GT SCH ×2 (13:04→23:12)
[2023-02-09] MEDS: SILVER SULFADIAZINE 1% TOP CREAM 50 GM JAR TP SCH ×2 (13:31→23:13)
[2023-02-09] MEDS: ACETAMINOPHEN 650 MG/20.3 ML ORAL SOLUTION (CUPS) GT PRN ×2 (18:41→23:40)
[2023-02-09] MEDS: DOXAZOSIN MESYLATE 4 MG TABLET GT SCH (23:12)
[2023-02-10] MEDS: INSULIN SLIDING SCALE (NOVOLOG) 1 VIAL SQ SCH ×4 (00:12→18:40)
[2023-02-10] MEDS: OXcarbazepine 300 MG/5 ML UNIT DOSE CUPS GT SCH ×3 (07:40→21:36)
[2023-02-10] MEDS: LEVOTHYROXINE NA 100 MCG TABLET (FP) GT SCH (07:40)
[2023-02-10] MEDS: ALBUTEROL SO4 2.5/IPRATROPIUM 0.5 INH SOL 3 ML VIAL.NEB. NEB SCH ×3 (08:35→20:05)
[2023-02-10] MEDS: levETIRAcetam 500 MG/5 ML ORAL SOLUTION (UNIT-DOSE CUPS) GT SCH ×2 (10:30→21:35)
[2023-02-10] MEDS: Lacosamide 50 MG/5 ML ORAL SOLUTION UNIT CUPS GT SCH ×2 (10:31→21:35)
[2023-02-10] MEDS: ENOXAPARIN NA (PORCINE) 40 MG/0.4 ML DISP.SYRIN SQ SCH (10:32)
[2023-02-10] MEDS: FERROUS SO4 300 MG/5 ML ORAL SOLN UNIT DOSE CUPS GT SCH (10:32)
[2023-02-10] MEDS: DIGOXIN 0.125 MG TABLET GT SCH (10:33)
[2023-02-10] MEDS: FAMOTIDINE 20 MG/2.5 ML ORAL LIQUID GT SCH ×2 (10:34→21:35)
[2023-02-10] MEDS ORDERED: POLYETHYLENE GLYCOL (HEALTHYLAX) 3350 17 GM PACKET GT ONE (11:00)
[2023-02-10] MEDS: SILVER SULFADIAZINE 1% TOP CREAM 50 GM JAR TP SCH ×2 (11:00→21:37)
[2023-02-10] MEDS ORDERED: MINERAL OIL ENEMA 133 ML ENEMA RC PRN (16:06)
[2023-02-10] MEDS: DOXAZOSIN MESYLATE 4 MG TABLET GT SCH (21:35)
[2023-02-11] MEDS: INSULIN SLIDING SCALE (NOVOLOG) 1 VIAL SQ SCH ×5 (00:35→23:13)
[2023-02-11] MEDS: OXcarbazepine 300 MG/5 ML UNIT DOSE CUPS GT SCH ×3 (05:16→22:11)
[2023-02-11] MEDS: LEVOTHYROXINE NA 100 MCG TABLET (FP) GT SCH (06:11)
[2023-02-11] MEDS: ALBUTEROL SO4 2.5/IPRATROPIUM 0.5 INH SOL 3 ML VIAL.NEB. NEB SCH ×3 (07:36→20:38)
[2023-02-11 09:53] LABS: HEMATOCRIT 23.1 % (35.4-49); HEMOGLOBIN 7.6 GM/dL (11.7-16.9); MCH 31.1 pg (25.7-33.7); MCHC 32.8 g/dl (32.0-35.9); MEAN PLT VOLUME 7.3 fl (7.5-11.1); PLATELET COUNT 307 10^3/uL (134-434); RBC 2.43 M/mm3 (4.00-5.60); RDW 17.3 % (11.9-15.9); WHITE BLOOD COUNT 8.4 K/mm3 (4.0-10.0)
[2023-02-11 10:12] LABS: POTASSIUM 3.8 mmol/L (3.5-5.1)
[2023-02-11 10:54] LABS: ALBUMIN 1.6 g/dl (3.4-5.0); ANISOCYTOSIS 1+; MACROCYTOSIS 0
[2023-02-11 10:57] LABS: CREATININE 0.6 mg/dL (0.55-1.3)
[2023-02-11 10:59] LABS: BILIRUBIN,TOTAL 0.5 mg/dL (0.2-1)
[2023-02-11] MEDS: DIGOXIN 0.125 MG TABLET GT SCH (12:06)
[2023-02-11] MEDS: FERROUS SO4 300 MG/5 ML ORAL SOLN UNIT DOSE CUPS GT SCH (12:07)
[2023-02-11] MEDS: levETIRAcetam 500 MG/5 ML ORAL SOLUTION (UNIT-DOSE CUPS) GT SCH ×2 (12:07→22:09)
[2023-02-11] MEDS: ENOXAPARIN NA (PORCINE) 40 MG/0.4 ML DISP.SYRIN SQ SCH (12:07)
[2023-02-11] MEDS: Lacosamide 50 MG/5 ML ORAL SOLUTION UNIT CUPS GT SCH ×2 (12:10→22:10)
[2023-02-11] MEDS: FAMOTIDINE 20 MG/2.5 ML ORAL LIQUID GT SCH ×2 (12:10→22:08)
[2023-02-11] MEDS: SILVER SULFADIAZINE 1% TOP CREAM 50 GM JAR TP SCH ×2 (12:11→22:14)
[2023-02-11] MEDS: DOXAZOSIN MESYLATE 4 MG TABLET GT SCH (22:10)
[2023-02-12] MEDS: INSULIN SLIDING SCALE (NOVOLOG) 1 VIAL SQ SCH ×3 (05:57→17:56)
[2023-02-12] MEDS: OXcarbazepine 300 MG/5 ML UNIT DOSE CUPS GT SCH ×3 (06:01→22:32)
[2023-02-12] MEDS: LEVOTHYROXINE NA 100 MCG TABLET (FP) GT SCH (06:02)
[2023-02-12] MEDS: ALBUTEROL SO4 2.5/IPRATROPIUM 0.5 INH SOL 3 ML VIAL.NEB. NEB SCH ×3 (08:02→20:10)
[2023-02-12] MEDS: FERROUS SO4 300 MG/5 ML ORAL SOLN UNIT DOSE CUPS GT SCH (09:19)
[2023-02-12] MEDS: AMINO ACIDS/PROTEIN HYDROLYS 30 ML LIQUID.PKT PO SCH (09:19)
[2023-02-12] MEDS: levETIRAcetam 500 MG/5 ML ORAL SOLUTION (UNIT-DOSE CUPS) GT SCH ×2 (09:19→22:32)
[2023-02-12] MEDS: DIGOXIN 0.125 MG TABLET GT SCH (09:19)
[2023-02-12] MEDS: FAMOTIDINE 20 MG/2.5 ML ORAL LIQUID GT SCH ×2 (09:22→22:33)
[2023-02-12] MEDS: ENOXAPARIN NA (PORCINE) 40 MG/0.4 ML DISP.SYRIN SQ SCH (09:22)
[2023-02-12] MEDS: Lacosamide 50 MG/5 ML ORAL SOLUTION UNIT CUPS GT SCH ×2 (09:23→22:32)
[2023-02-12] MEDS: SILVER SULFADIAZINE 1% TOP CREAM 50 GM JAR TP SCH ×2 (09:24→22:33)
[2023-02-12] MEDS: ACETAMINOPHEN 650 MG/20.3 ML ORAL SOLUTION (CUPS) GT PRN (20:00)
[2023-02-12] MEDS: DOXAZOSIN MESYLATE 4 MG TABLET GT SCH (22:32)
[2023-02-13] MEDS: INSULIN SLIDING SCALE (NOVOLOG) 1 VIAL SQ SCH ×4 (00:05→18:04)
[2023-02-13] MEDS: OXcarbazepine 300 MG/5 ML UNIT DOSE CUPS GT SCH ×3 (06:22→22:01)
[2023-02-13] MEDS: LEVOTHYROXINE NA 100 MCG TABLET (FP) GT SCH (06:22)
[2023-02-13] MEDS: ALBUTEROL SO4 2.5/IPRATROPIUM 0.5 INH SOL 3 ML VIAL.NEB. NEB SCH ×3 (07:15→20:05)
[2023-02-13] MEDS: FERROUS SO4 300 MG/5 ML ORAL SOLN UNIT DOSE CUPS GT SCH (09:40)
[2023-02-13] MEDS: levETIRAcetam 500 MG/5 ML ORAL SOLUTION (UNIT-DOSE CUPS) GT SCH ×2 (09:40→22:00)
[2023-02-13] MEDS: FAMOTIDINE 20 MG/2.5 ML ORAL LIQUID GT SCH ×2 (09:40→22:01)
[2023-02-13] MEDS: AMINO ACIDS/PROTEIN HYDROLYS 30 ML LIQUID.PKT PO SCH (09:40)
[2023-02-13] MEDS: DIGOXIN 0.125 MG TABLET GT SCH (09:40)
[2023-02-13] MEDS: ENOXAPARIN NA (PORCINE) 40 MG/0.4 ML DISP.SYRIN SQ SCH (09:41)
[2023-02-13] MEDS: Lacosamide 50 MG/5 ML ORAL SOLUTION UNIT CUPS GT SCH ×2 (09:41→22:00)
[2023-02-13] MEDS: SILVER SULFADIAZINE 1% TOP CREAM 50 GM JAR TP SCH ×2 (09:42→22:03)
[2023-02-13 09:56] LABS: HEMATOCRIT 21.3 % (35.4-49); MCH 31.1 pg (25.7-33.7); MCHC 32.6 g/dl (32.0-35.9); MEAN CELL VOLUME 95.2 fl (80-96); MEAN PLT VOLUME 7.2 fl (7.5-11.1); PLATELET COUNT 285 10^3/uL (134-434); RBC 2.24 M/mm3 (4.00-5.60); RDW 17.7 % (11.9-15.9); WHITE BLOOD COUNT 13.3 K/mm3 (4.0-10.0)
[2023-02-13 10:15] LABS: POTASSIUM 3.5 mmol/L (3.5-5.1)
[2023-02-13 10:44] LABS: CALCIUM 8.7 mg/dL (8.5-10.1)
[2023-02-13 10:45] LABS: ALBUMIN 1.6 g/dl (3.4-5.0); BLOOD UREA NITROGEN 50.9 mg/dL (7-18)
[2023-02-13 10:48] LABS: CREATININE 0.8 mg/dL (0.55-1.3)
[2023-02-13 10:49] LABS: BILIRUBIN,TOTAL 0.8 mg/dL (0.2-1); TOT PROT 5.8 g/dl (6.4-8.2)
[2023-02-13] MEDS: DOXAZOSIN MESYLATE 4 MG TABLET GT SCH (22:01)
[2023-02-14] MEDS: INSULIN SLIDING SCALE (NOVOLOG) 1 VIAL SQ SCH ×4 (00:15→17:33)
[2023-02-14] MEDS: OXcarbazepine 300 MG/5 ML UNIT DOSE CUPS GT SCH ×3 (05:42→21:35)
[2023-02-14] MEDS: LEVOTHYROXINE NA 100 MCG TABLET (FP) GT SCH (06:27)
[2023-02-14] MEDS: ALBUTEROL SO4 2.5/IPRATROPIUM 0.5 INH SOL 3 ML VIAL.NEB. NEB SCH ×3 (07:45→20:08)
[2023-02-14 07:49] LABS: HEMATOCRIT 21.4 % (35.4-49); MCH 30.6 pg (25.7-33.7); MCHC 31.7 g/dl (32.0-35.9); MEAN CELL VOLUME 96.6 fl (80-96); MEAN PLT VOLUME 7.6 fl (7.5-11.1); PLATELET COUNT 313 10^3/uL (134-434); RBC 2.22 M/mm3 (4.00-5.60); RDW 17.9 % (11.9-15.9); WHITE BLOOD COUNT 15.2 K/mm3 (4.0-10.0)
[2023-02-14 08:00] LABS: HEMOGLOBIN 6.8 GM/dL (11.7-16.9)
[2023-02-14] MEDS: AMINO ACIDS/PROTEIN HYDROLYS 30 ML LIQUID.PKT PO SCH (08:10)
[2023-02-14 08:13] LABS: POTASSIUM 3.9 mmol/L (3.5-5.1)
[2023-02-14 08:18] LABS: BLOOD UREA NITROGEN 66.2 mg/dL (7-18); CALCIUM 8.4 mg/dL (8.5-10.1)
[2023-02-14 08:19] LABS: ALBUMIN 1.6 g/dl (3.4-5.0)
[2023-02-14 08:23] LABS: BILIRUBIN,TOTAL 0.6 mg/dL (0.2-1)
[2023-02-14 09:35] LABS: ANISOCYTOSIS 3+; MACROCYTOSIS 1+; TARGET CELLS 2+
[2023-02-14] MEDS: levETIRAcetam 500 MG/5 ML ORAL SOLUTION (UNIT-DOSE CUPS) GT SCH ×2 (09:45→21:35)
[2023-02-14] MEDS: ENOXAPARIN NA (PORCINE) 40 MG/0.4 ML DISP.SYRIN SQ SCH (09:46)
[2023-02-14] MEDS: DIGOXIN 0.125 MG TABLET GT SCH (09:46)
[2023-02-14] MEDS: FERROUS SO4 300 MG/5 ML ORAL SOLN UNIT DOSE CUPS GT SCH (09:46)
[2023-02-14] MEDS: Lacosamide 50 MG/5 ML ORAL SOLUTION UNIT CUPS GT SCH ×2 (09:46→21:35)
[2023-02-14] MEDS: FAMOTIDINE 20 MG/2.5 ML ORAL LIQUID GT SCH ×2 (09:47→21:35)
[2023-02-14] MEDS: SILVER SULFADIAZINE 1% TOP CREAM 50 GM JAR TP SCH ×2 (09:47→21:37)
[2023-02-14] MEDS: ACETAMINOPHEN 650 MG/20.3 ML ORAL SOLUTION (CUPS) GT PRN (12:18)
[2023-02-14] MEDS: DOXAZOSIN MESYLATE 4 MG TABLET GT SCH (21:36)
[2023-02-15] MEDS: INSULIN SLIDING SCALE (NOVOLOG) 1 VIAL SQ SCH ×4 (01:37→17:21)
[2023-02-15] MEDS: OXcarbazepine 300 MG/5 ML UNIT DOSE CUPS GT SCH ×3 (05:43→21:40)
[2023-02-15] MEDS: LEVOTHYROXINE NA 100 MCG TABLET (FP) GT SCH (06:06)
[2023-02-15] MEDS: ALBUTEROL SO4 2.5/IPRATROPIUM 0.5 INH SOL 3 ML VIAL.NEB. NEB SCH ×3 (07:43→20:20)
[2023-02-15] MEDS: Lacosamide 50 MG/5 ML ORAL SOLUTION UNIT CUPS GT SCH ×2 (09:21→21:39)
[2023-02-15] MEDS: AMINO ACIDS/PROTEIN HYDROLYS 30 ML LIQUID.PKT PO SCH (09:21)
[2023-02-15] MEDS: levETIRAcetam 500 MG/5 ML ORAL SOLUTION (UNIT-DOSE CUPS) GT SCH ×2 (09:21→21:40)
[2023-02-15] MEDS: FAMOTIDINE 20 MG/2.5 ML ORAL LIQUID GT SCH ×2 (09:21→21:40)
[2023-02-15] MEDS: SILVER SULFADIAZINE 1% TOP CREAM 50 GM JAR TP SCH ×2 (09:22→21:40)
[2023-02-15] MEDS: ENOXAPARIN NA (PORCINE) 40 MG/0.4 ML DISP.SYRIN SQ SCH (09:22)
[2023-02-15] MEDS: DIGOXIN 0.125 MG TABLET GT SCH (09:22)
[2023-02-15] MEDS: FERROUS SO4 300 MG/5 ML ORAL SOLN UNIT DOSE CUPS GT SCH (09:22)
[2023-02-15] MEDS: ACETAMINOPHEN 650 MG/20.3 ML ORAL SOLUTION (CUPS) GT PRN ×2 (09:54→16:39)
[2023-02-15 10:58] LABS: BASO % 0.1 % (0-2.0); EOS % 0.1 % (0-4.5); HEMATOCRIT 28.1 % (35.4-49); HEMOGLOBIN 9.1 GM/dL (11.7-16.9); LYMPH % 4.7 % (8-40); MCH 30.6 pg (25.7-33.7); MCHC 32.5 g/dl (32.0-35.9); MEAN PLT VOLUME 7.6 fl (7.5-11.1); NEUT % 90.1 % (42.8-82.8); PLATELET COUNT 319 10^3/uL (134-434); RBC 2.99 M/mm3 (4.00-5.60); RDW 16.8 % (11.9-15.9)
[2023-02-15 11:20] LABS: ANISOCYTOSIS 2+; MACROCYTOSIS 2+
[2023-02-15] MEDS ORDERED: MINERAL OIL ENEMA 133 ML ENEMA RC ONE (12:00)
[2023-02-15 13:52] LABS: ALBUMIN 1.6 g/dl (3.4-5.0); BILIRUBIN,TOTAL 0.8 mg/dL (0.2-1); CALCIUM 8.8 mg/dL (8.5-10.1); CREATININE 0.9 mg/dL (0.55-1.3); POTASSIUM 4.1 mmol/L (3.5-5.1); TOT PROT 6.3 g/dl (6.4-8.2)
[2023-02-15] MEDS: DOXAZOSIN MESYLATE 4 MG TABLET GT SCH (21:40)
[2023-02-16] MEDS: INSULIN SLIDING SCALE (NOVOLOG) 1 VIAL SQ SCH ×4 (00:15→17:08)
[2023-02-16] MEDS: OXcarbazepine 300 MG/5 ML UNIT DOSE CUPS GT SCH ×3 (05:26→23:00)
[2023-02-16] MEDS: LEVOTHYROXINE NA 100 MCG TABLET (FP) GT SCH (06:00)
[2023-02-16] MEDS: ALBUTEROL SO4 2.5/IPRATROPIUM 0.5 INH SOL 3 ML VIAL.NEB. NEB SCH ×3 (08:05→20:00)
[2023-02-16] MEDS: ENOXAPARIN NA (PORCINE) 40 MG/0.4 ML DISP.SYRIN SQ SCH (09:52)
[2023-02-16] MEDS: levETIRAcetam 500 MG/5 ML ORAL SOLUTION (UNIT-DOSE CUPS) GT SCH (09:53)
[2023-02-16] MEDS: FAMOTIDINE 20 MG/2.5 ML ORAL LIQUID GT SCH ×2 (09:53→23:00)
[2023-02-16] MEDS: FERROUS SO4 300 MG/5 ML ORAL SOLN UNIT DOSE CUPS GT SCH (09:54)
[2023-02-16] MEDS: DIGOXIN 0.125 MG TABLET GT SCH (09:54)
[2023-02-16] MEDS: Lacosamide 50 MG/5 ML ORAL SOLUTION UNIT CUPS GT SCH ×2 (09:56→23:00)
[2023-02-16] MEDS: SILVER SULFADIAZINE 1% TOP CREAM 50 GM JAR TP SCH (09:59)
[2023-02-16] MEDS: AMINO ACIDS/PROTEIN HYDROLYS 30 ML LIQUID.PKT PO SCH (10:19)
[2023-02-16 11:29] LABS: HEMATOCRIT 24.7 % (35.4-49); HEMOGLOBIN 8.1 GM/dL (11.7-16.9); MCH 30.5 pg (25.7-33.7); MCHC 32.8 g/dl (32.0-35.9); MEAN CELL VOLUME 92.9 fl (80-96); MEAN PLT VOLUME 7.7 fl (7.5-11.1); PLATELET COUNT 286 10^3/uL (134-434); RBC 2.66 M/mm3 (4.00-5.60); RDW 17.6 % (11.9-15.9); WHITE BLOOD COUNT 14.8 K/mm3 (4.0-10.0)
[2023-02-16 11:58] LABS: POTASSIUM 3.9 mmol/L (3.5-5.1)
[2023-02-16 12:01] LABS: ALBUMIN 1.6 g/dl (3.4-5.0); BLOOD UREA NITROGEN 87.4 mg/dL (7-18); CALCIUM 8.8 mg/dL (8.5-10.1)
[2023-02-16 12:05] LABS: CREATININE 0.9 mg/dL (0.55-1.3)
[2023-02-16 12:07] LABS: BILIRUBIN,TOTAL 0.7 mg/dL (0.2-1); TOT PROT 6.1 g/dl (6.4-8.2)
[2023-02-16 12:08] LABS: ANISOCYTOSIS 0; HELMET CELLS 0; HOWELL-JOLLY BODIES 0; MACROCYTOSIS 0; OVALOCYTE 0; ROULEAU 0; SICKELED CELLS 0; TARGET CELLS 0; TEAR DROP CELLS 0; TOXIC GRANULATION 0
[2023-02-16] MEDS ORDERED: FUROSEMIDE 40 MG/4 ML INJECTABLE VIAL IVPUSH ONE (15:53)
[2023-02-16] MEDS: PIPERACILLIN/TAZOB 4.5 GM 4.5 GM in DEXTROSE 5%-WATER 100 ML IVPB SCH (18:11)
[2023-02-16] MEDS: DOXAZOSIN MESYLATE 4 MG TABLET GT SCH (23:00)
[2023-02-17] MEDS: levETIRAcetam 500 MG/5 ML ORAL SOLUTION (UNIT-DOSE CUPS) GT SCH ×3 (00:27→21:42)
[2023-02-17] MEDS: INSULIN SLIDING SCALE (NOVOLOG) 1 VIAL SQ SCH ×4 (00:28→17:59)
[2023-02-17] MEDS: SILVER SULFADIAZINE 1% TOP CREAM 50 GM JAR TP SCH ×3 (00:45→21:43)
[2023-02-17] MEDS: PIPERACILLIN/TAZOB 4.5 GM 4.5 GM in DEXTROSE 5%-WATER 100 ML IVPB SCH ×3 (01:24→17:44)
[2023-02-17] MEDS: ACETAMINOPHEN 650 MG/20.3 ML ORAL SOLUTION (CUPS) GT PRN (01:24)
[2023-02-17] MEDS: OXcarbazepine 300 MG/5 ML UNIT DOSE CUPS GT SCH ×3 (06:27→21:43)
[2023-02-17] MEDS: LEVOTHYROXINE NA 100 MCG TABLET (FP) GT SCH (06:27)
[2023-02-17] MEDS: ALBUTEROL SO4 2.5/IPRATROPIUM 0.5 INH SOL 3 ML VIAL.NEB. NEB SCH ×3 (08:10→20:54)
[2023-02-17] MEDS: AMINO ACIDS/PROTEIN HYDROLYS 30 ML LIQUID.PKT PO SCH (08:35)
[2023-02-17] MEDS: FERROUS SO4 300 MG/5 ML ORAL SOLN UNIT DOSE CUPS GT SCH (10:03)
[2023-02-17] MEDS: ENOXAPARIN NA (PORCINE) 40 MG/0.4 ML DISP.SYRIN SQ SCH (10:03)
[2023-02-17] MEDS: FAMOTIDINE 20 MG/2.5 ML ORAL LIQUID GT SCH ×2 (10:04→21:42)
[2023-02-17] MEDS: DIGOXIN 0.125 MG TABLET GT SCH (10:04)
[2023-02-17] MEDS: Lacosamide 50 MG/5 ML ORAL SOLUTION UNIT CUPS GT SCH ×2 (10:04→21:42)
[2023-02-17 11:37] LABS: HEMATOCRIT 22.9 % (35.4-49); HEMOGLOBIN 7.4 GM/dL (11.7-16.9); MCH 30.6 pg (25.7-33.7); MCHC 32.4 g/dl (32.0-35.9); MEAN CELL VOLUME 94.3 fl (80-96); MEAN PLT VOLUME 7.8 fl (7.5-11.1); PLATELET COUNT 304 10^3/uL (134-434); RBC 2.43 M/mm3 (4.00-5.60); RDW 17.3 % (11.9-15.9); WHITE BLOOD COUNT 17.7 K/mm3 (4.0-10.0)
[2023-02-17 12:17] LABS: ANISOCYTOSIS 0; HELMET CELLS 0; HOWELL-JOLLY BODIES 0; MACROCYTOSIS 0; OVALOCYTE 0; ROULEAU 0; SICKELED CELLS 0; TARGET CELLS 0; TEAR DROP CELLS 0; TOXIC GRANULATION 0
[2023-02-17 13:18] LABS: POTASSIUM 3.7 mmol/L (3.5-5.1)
[2023-02-17 13:41] LABS: CALCIUM 9.1 mg/dL (8.5-10.1)
[2023-02-17 13:42] LABS: ALBUMIN 1.4 g/dl (3.4-5.0); BLOOD UREA NITROGEN 97.3 mg/dL (7-18)
[2023-02-17 13:45] LABS: PHOSPHOROUS 3.8 mg/dL (2.5-4.9)
[2023-02-17 13:46] LABS: BILIRUBIN,TOTAL 0.7 mg/dL (0.2-1); TOT PROT 5.7 g/dl (6.4-8.2)
[2023-02-17] MEDS: DOXAZOSIN MESYLATE 4 MG TABLET GT SCH (21:42)
[2023-02-18] MEDS: PIPERACILLIN/TAZOB 4.5 GM 4.5 GM in DEXTROSE 5%-WATER 100 ML IVPB SCH ×3 (01:02→20:10)
[2023-02-18] MEDS: INSULIN SLIDING SCALE (NOVOLOG) 1 VIAL SQ SCH ×5 (01:02→23:20)
[2023-02-18] MEDS: LEVOTHYROXINE NA 100 MCG TABLET (FP) GT SCH (07:00)
[2023-02-18] MEDS: OXcarbazepine 300 MG/5 ML UNIT DOSE CUPS GT SCH ×3 (07:00→22:14)
[2023-02-18] MEDS ORDERED: FUROSEMIDE 20 MG TABLET (FP) GT ONE (08:15)
[2023-02-18] MEDS: ALBUTEROL SO4 2.5/IPRATROPIUM 0.5 INH SOL 3 ML VIAL.NEB. NEB SCH ×3 (08:30→20:30)
[2023-02-18] MEDS: ACETAMINOPHEN 650 MG/20.3 ML ORAL SOLUTION (CUPS) GT PRN (09:37)
[2023-02-18] MEDS: levETIRAcetam 500 MG/5 ML ORAL SOLUTION (UNIT-DOSE CUPS) GT SCH ×2 (09:39→22:14)
[2023-02-18] MEDS: AMINO ACIDS/PROTEIN HYDROLYS 30 ML LIQUID.PKT PO SCH (09:40)
[2023-02-18] MEDS: FERROUS SO4 300 MG/5 ML ORAL SOLN UNIT DOSE CUPS GT SCH (09:42)
[2023-02-18] MEDS: ENOXAPARIN NA (PORCINE) 40 MG/0.4 ML DISP.SYRIN SQ SCH (09:43)
[2023-02-18] MEDS: DIGOXIN 0.125 MG TABLET GT SCH (09:43)
[2023-02-18] MEDS: FAMOTIDINE 20 MG/2.5 ML ORAL LIQUID GT SCH ×2 (09:43→22:14)
[2023-02-18] MEDS: Lacosamide 50 MG/5 ML ORAL SOLUTION UNIT CUPS GT SCH ×2 (09:44→22:13)
[2023-02-18 12:16] LABS: INR 1.21 (0.83-1.09)
[2023-02-18 12:18] LABS: ACTIVATED PTT 32.2 SECONDS (25.2-36.5); HEMATOCRIT 24.1 % (35.4-49); HEMOGLOBIN 7.8 GM/dL (11.7-16.9); MCH 30.8 pg (25.7-33.7); MCHC 32.5 g/dl (32.0-35.9); MEAN CELL VOLUME 94.5 fl (80-96); MEAN PLT VOLUME 7.9 fl (7.5-11.1); PLATELET COUNT 307 10^3/uL (134-434); RBC 2.55 M/mm3 (4.00-5.60); RDW 17.5 % (11.9-15.9); WHITE BLOOD COUNT 19.9 K/mm3 (4.0-10.0)
[2023-02-18 12:40] LABS: POTASSIUM 3.2 mmol/L (3.5-5.1)
[2023-02-18 12:42] LABS: CALCIUM 8.7 mg/dL (8.5-10.1)
[2023-02-18 12:44] LABS: BLOOD UREA NITROGEN 100.8 mg/dL (7-18)
[2023-02-18 12:49] LABS: ANISOCYTOSIS 0; HELMET CELLS 0; HOWELL-JOLLY BODIES 0; MACROCYTOSIS 0; OVALOCYTE 0; ROULEAU 0; SICKELED CELLS 0; TARGET CELLS 0; TEAR DROP CELLS 0; TOXIC GRANULATION 0
[2023-02-18] MEDS: SILVER SULFADIAZINE 1% TOP CREAM 50 GM JAR TP SCH ×2 (14:31→23:21)
[2023-02-18] MEDS: KCL 10 MEQ IVPB 10 MEQ/100 ML INFUS.BAG IVPB SCH ×3 (16:16→18:43)
[2023-02-18] MEDS: DOXAZOSIN MESYLATE 4 MG TABLET GT SCH (22:14)
[2023-02-19] MEDS: PIPERACILLIN/TAZOB 4.5 GM 4.5 GM in DEXTROSE 5%-WATER 100 ML IVPB SCH ×3 (02:20→17:39)
[2023-02-19] MEDS: LEVOTHYROXINE NA 100 MCG TABLET (FP) GT SCH (06:14)
[2023-02-19] MEDS: INSULIN SLIDING SCALE (NOVOLOG) 1 VIAL SQ SCH ×3 (06:14→17:34)
[2023-02-19] MEDS: OXcarbazepine 300 MG/5 ML UNIT DOSE CUPS GT SCH ×3 (06:17→21:51)
[2023-02-19] MEDS: ALBUTEROL SO4 2.5/IPRATROPIUM 0.5 INH SOL 3 ML VIAL.NEB. NEB SCH ×3 (08:00→20:34)
[2023-02-19] MEDS: Lacosamide 50 MG/5 ML ORAL SOLUTION UNIT CUPS GT SCH ×2 (09:10→21:52)
[2023-02-19] MEDS: DIGOXIN 0.125 MG TABLET GT SCH (09:11)
[2023-02-19] MEDS: FAMOTIDINE 20 MG/2.5 ML ORAL LIQUID GT SCH ×2 (09:11→21:51)
[2023-02-19] MEDS: AMINO ACIDS/PROTEIN HYDROLYS 30 ML LIQUID.PKT PO SCH (09:11)
[2023-02-19] MEDS: FERROUS SO4 300 MG/5 ML ORAL SOLN UNIT DOSE CUPS GT SCH (09:11)
[2023-02-19] MEDS: SILVER SULFADIAZINE 1% TOP CREAM 50 GM JAR TP SCH (10:20)
[2023-02-19 11:14] LABS: HEMATOCRIT 21.4 % (35.4-49); HEMOGLOBIN 7.2 GM/dL (11.7-16.9); MCH 31.1 pg (25.7-33.7); MCHC 33.5 g/dl (32.0-35.9); MEAN CELL VOLUME 92.7 fl (80-96); MEAN PLT VOLUME 7.9 fl (7.5-11.1); PLATELET COUNT 299 10^3/uL (134-434); RBC 2.31 M/mm3 (4.00-5.60); RDW 17.5 % (11.9-15.9); WHITE BLOOD COUNT 15.5 K/mm3 (4.0-10.0)
[2023-02-19] MEDS: levETIRAcetam 500 MG/5 ML ORAL SOLUTION (UNIT-DOSE CUPS) GT SCH ×2 (11:27→21:51)
[2023-02-19 11:38] LABS: CHLORIDE 103 mmol/L (98-107); POTASSIUM 3.6 mmol/L (3.5-5.1); SODIUM 145 mmol/L (136-145)
[2023-02-19 11:51] LABS: ALBUMIN 1.3 g/dl (3.4-5.0); ANION GAP 7 MMOL/L (8-16); CALCIUM 8.3 mg/dL (8.5-10.1); CO2 35 mmol/L (21-32)
[2023-02-19 11:52] LABS: GLUCOSE,RANDOM 204 mg/dL (74-106)
[2023-02-19 11:54] LABS: CREATININE 1.1 mg/dL (0.55-1.3)
[2023-02-19 11:55] LABS: BILIRUBIN,TOTAL 0.6 mg/dL (0.2-1); SGOT/AST 67 U/L (15-37); SGPT/ALT 81 U/L (13-61)
[2023-02-19 11:56] LABS: ALK PHOS 382 U/L (45-117); TOT PROT 5.6 g/dl (6.4-8.2)
[2023-02-19 11:58] LABS: BLOOD UREA NITROGEN 112.4 mg/dL (7-18)
[2023-02-19 12:28] LABS: ANISOCYTOSIS 0; HELMET CELLS 0; HOWELL-JOLLY BODIES 0; MACROCYTOSIS 0; OVALOCYTE 0; ROULEAU 0; SICKELED CELLS 0; TARGET CELLS 0; TEAR DROP CELLS 0; TOXIC GRANULATION 0
[2023-02-19] MEDS: DOXAZOSIN MESYLATE 4 MG TABLET GT SCH (21:51)
[2023-02-20] MEDS: PIPERACILLIN/TAZOB 4.5 GM 4.5 GM in DEXTROSE 5%-WATER 100 ML IVPB SCH ×2 (01:54→09:21)
[2023-02-20] MEDS: INSULIN SLIDING SCALE (NOVOLOG) 1 VIAL SQ SCH ×3 (05:30→12:05)
[2023-02-20] MEDS: OXcarbazepine 300 MG/5 ML UNIT DOSE CUPS GT SCH ×2 (05:31→13:02)
[2023-02-20] MEDS: LEVOTHYROXINE NA 100 MCG TABLET (FP) GT SCH (06:09)
[2023-02-20] MEDS: SILVER SULFADIAZINE 1% TOP CREAM 50 GM JAR TP SCH ×2 (06:40→18:00)
[2023-02-20] MEDS: ALBUTEROL SO4 2.5/IPRATROPIUM 0.5 INH SOL 3 ML VIAL.NEB. NEB SCH ×2 (08:19→14:55)
[2023-02-20] MEDS: ENOXAPARIN NA (PORCINE) 40 MG/0.4 ML DISP.SYRIN SQ SCH (09:21)
[2023-02-20] MEDS: DIGOXIN 0.125 MG TABLET GT SCH (09:22)
[2023-02-20] MEDS: Lacosamide 50 MG/5 ML ORAL SOLUTION UNIT CUPS GT SCH (09:22)
[2023-02-20] MEDS: FERROUS SO4 300 MG/5 ML ORAL SOLN UNIT DOSE CUPS GT SCH (09:22)
[2023-02-20] MEDS: AMINO ACIDS/PROTEIN HYDROLYS 30 ML LIQUID.PKT PO SCH (09:22)
[2023-02-20] MEDS: levETIRAcetam 500 MG/5 ML ORAL SOLUTION (UNIT-DOSE CUPS) GT SCH (09:22)
[2023-02-20] MEDS: FAMOTIDINE 20 MG/2.5 ML ORAL LIQUID GT SCH (09:23)
[2023-02-20 12:02] LABS: HEMATOCRIT 21.8 % (35.4-49); MCH 30.1 pg (25.7-33.7); MCHC 31.8 g/dl (32.0-35.9); MEAN CELL VOLUME 94.4 fl (80-96); MEAN PLT VOLUME 8.3 fl (7.5-11.1); PLATELET COUNT 335 10^3/uL (134-434); RBC 2.31 M/mm3 (4.00-5.60); RDW 16.9 % (11.9-15.9); WHITE BLOOD COUNT 17.5 K/mm3 (4.0-10.0)
[2023-02-20 12:09] LABS: HEMOGLOBIN 6.9 GM/dL (11.7-16.9)
[2023-02-20 12:26] LABS: CHLORIDE 101 mmol/L (98-107); SODIUM 142 mmol/L (136-145)
[2023-02-20 12:51] LABS: BILIRUBIN,TOTAL 0.7 mg/dL (0.2-1); TOT PROT 5.7 g/dl (6.4-8.2)
[2023-02-20 12:52] LABS: ALK PHOS 389 U/L (45-117)
[2023-02-20 12:53] LABS: SGOT/AST 63 U/L (15-37)
[2023-02-20 12:55] LABS: ALBUMIN 1.3 g/dl (3.4-5.0); PHOSPHOROUS 5.1 mg/dL (2.5-4.9); SGPT/ALT 77 U/L (13-61)
[2023-02-20 12:56] LABS: ANION GAP 8 MMOL/L (8-16); CO2 34 mmol/L (21-32); CREATININE 1.3 mg/dL (0.55-1.3)
[2023-02-20 12:57] LABS: BLOOD UREA NITROGEN 121.7 mg/dL (7-18); CALCIUM 8.4 mg/dL (8.5-10.1); GLUCOSE,RANDOM 203 mg/dL (74-106); MAGNESIUM 3.1 mg/dL (1.8-2.4)
[2023-02-20 13:25] VITALS: BP 128/63; TEMP 97.5
[2023-02-20 13:35] LABS: HEMATOCRIT 21.9 % (35.4-49); HEMOGLOBIN 7.1 GM/dL (11.7-16.9); MCH 29.9 pg (25.7-33.7); MCHC 32.4 g/dl (32.0-35.9); MEAN CELL VOLUME 92.4 fl (80-96); MEAN PLT VOLUME 8.2 fl (7.5-11.1); PLATELET COUNT 328 10^3/uL (134-434); RBC 2.37 M/mm3 (4.00-5.60); RDW 17.8 % (11.9-15.9); WHITE BLOOD COUNT 16.8 K/mm3 (4.0-10.0)
[2023-02-20 14:20] LABS: ANISOCYTOSIS 0; HELMET CELLS 0; HOWELL-JOLLY BODIES 0; MACROCYTOSIS 0; OVALOCYTE 0; ROULEAU 0; SICKELED CELLS 0; TARGET CELLS 0; TEAR DROP CELLS 0; TOXIC GRANULATION 0
[2023-02-20 15:31] VITALS: PULSE 87; RESP 22
== END 2023-02-20 17:54 | disposition expired | DRG 207 ==
LOC: JER 21:14 → JERBED 22:11 → JICU 01-30 09:25 → J5S 02-03 17:33
PROVIDERS: ATTEND Internal Medicine
PROC: 5A1955Z Respiratory Ventilation, Greater than 96 Consecutive Hours (ICD-10-PCS; 2023-01-29)
PROC: 0BC78ZZ Extirpation of Matter from Left Main Bronchus, Via Natural or Artificial Opening Endoscopic (ICD-10-PCS; principal; 2023-02-01)
DX: J18.9 Pneumonia, unspecified organism (principal); A41.9 Sepsis, unspecified organism; J96.21 Acute and chronic respiratory failure with hypoxia; R53.2 Functional quadriplegia; R65.21 Severe sepsis with septic shock; T17.590A Other foreign object in bronchus causing asphyxiation, initial encounter; Z99.11 Dependence on respirator [ventilator] status; G93.1 Anoxic brain damage, not elsewhere classified; J98.11 Atelectasis; E87.1 Hypo-osmolality and hyponatremia; N39.0 Urinary tract infection, site not specified; J90 Pleural effusion, not elsewhere classified; I11.0 Hypertensive heart disease with heart failure; E11.9 Type 2 diabetes mellitus without complications; I50.9 Heart failure, unspecified; J45.909 Unspecified asthma, uncomplicated; G40.909 Epilepsy, unspecified, not intractable, without status epilepticus; I48.91 Unspecified atrial fibrillation; E03.9 Hypothyroidism, unspecified; Z86.74 Personal history of sudden cardiac arrest; D64.9 Anemia, unspecified; R74.01 Elevation of levels of liver transaminase levels; X58.XXXA Exposure to other specified factors, initial encounter; Y93.89 Activity, other specified; Y92.89 Other specified places as the place of occurrence of the external cause; Y99.8 Other external cause status
CPT/HCPCS: 0241U-QW; 36415; 36430; 36600; 71045-TC-FY; 71275-TC; 80048; 80053; 80162; 81003; 82272; 82803; 82962; 82977; 83605; 83735; 83880; 84100; 84484; 85025; 85027; 85610; 85730; 86850; 86900; 86901; 86922; 87040; 87070; 87081; 87086; 87186; 87205; 93005; 93010; 94002; 94640; 99285-25; P9038; P9058; Q9967